=== PATIENT | female | born 1945 | race Caucasian/White ===

== ENCOUNTER 2016-10-21 18:21 | Emergency (ER) | payer OTHER ==
[~2016-10-21] VITALS: Ht 157.5 cm; Wt 63.5 kg
[~2016-10-21 18:21] MED LIST: ALEVE220 M1 PO; AZITHROMYCIN500 M3 PO; BENADRYL25 MG PO; CEFUROXIME250 M1 PO; GUAIFENESI100 MG/5 M PO; GUAIFENESIN ER600 MG PO; MULTI-DAY VITA1 EACH PO; VITAMIN C500 M6 PO
[2016-10-21] MEDS ORDERED: ALBUTEROL2.5 MG/3 M INH/SOL (19:47)
--- NOTE | 2016-10-21 20:05 | ED GI/GU/ABDOMINAL COMPLAINT ---
History of Present Illness General Chief Complaint: General Adult Stated Complaint: PT IS HAVING A REACTION TO RX GIVEN BY Source: patient, family Exam Limitations: no limitations Vital Signs & Intake/Output Vital Signs & Intake/Output Vital Signs Date Time Temp Pulse Resp B/P Pulse O2 O2 Flow FiO2 Ox Delivery Rate 10/21 2057 97.4 74 16 142/74 97 Room Air 10/21 1942 Room Air 10/22 1911 97.8 10/21 1831 99.2 88 20 167/93 94 Room Air ED Intake and Output 10/22 0000 10/21 1200 Intake Total 0 Output Total Balance 0 Intake, Oral 0 Patient 140 lb Weight Allergies Coded Allergies: Penicillins (RASH 10/21/16) Sulfa (Sulfonamide Antibiotics) (RASH 10/21/16) azithromycin (SEVERE GI PAIN, DIARRHEA 10/21/16) Reconcile Medications Albuterol Sulfate 2.5 MG/3 ML (0.083 %) VIAL.NEB 1 Vial INH/NURYS QAM RIGHT MIDDLE LOBE SYNDROME (Reported) Ascorbate Calcium (Vitamin C) (Unknown Strength) TABLET (Unknown Dose) PO DAILY SUPPLEMENT (Reported) Moxifloxacin HCl (Avelox) 400 MG TABLET 1 TAB PO DAILY pneumonia Multivitamin (Multi-Day Vitamins) 1 EACH TABLET 1 TAB PO DAILY SUPPLEMENT ( Reported) Triage Note: TRIAGE: PT TO ER C/C ABD PAIN AND DIARRHEA X 3 EPISODES, ONSET NOON. STATES IT STARTED RIGHT AFTER TAKING NEW ANTIBIOTIC AZITHROMYCIN FOR INFLAMMATION IN HER LUNGS. Triage Nurses Notes Reviewed? yes ? n Is pt currently ? No HPI: Miss Sullivan is a 71-year-old female with past medical history of recurrent pneumonias, and middle lobe syndrome presenting to the emergency department for GI upset. 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 She had a chest x-ray done which showed some early signs of inflammation. Given her history of previous pneumonias, the decision was made to put the patient azithromycin. Patient states she ate a normal lunch around noon and followed by yogurt about an hour later. Then she took the azithromycin 500 mg as today was the first day. Soon after, the patient developed abdominal pain as well as nausea. She had 3 episodes of diarrhea and by the last episode was quite watery nature. No chest pain, shortness of breath, throat swelling, trouble swallowing,cough, fever or chills. No blood in the stools. Denies any rash. Past History Travel History Traveled to [place] past 21 day No Medical History Any Pertinent Medical History? 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 No Review of Systems Review of Systems Constitutional: Reports: see HPI. EENTM: Reports: no symptoms. Respiratory: Reports: no symptoms. Cardiovascular: Reports: no symptoms. GI: Reports: abdominal pain, bloating, diarrhea, distention, nausea. Denies: bloody stool, vomiting. Genitourinary: Reports: no symptoms. Musculoskeletal: Reports: no symptoms. Skin: Reports: no symptoms. Neurological/Psychological: Reports: no symptoms. Hematologic/Endocrine: Reports: no symptoms. Immunologic/Allergic: Reports: no symptoms. All Other Systems: Reviewed and Negative Physical Exam Physical Exam Gastrointestinal: soft, non-tender, no organomegaly, hyperactive bowel sounds, no guarding or rebound Comments: Well-developed well-nourished patient in no apparent distress. HEENT: Atraumatic, extraocular motion intact Neck: Supple, FROM, no lymphadenopathy Back: FROM, Nontender Cardiovascular: Regular rate and rhythms no murmurs rubs or gallops, Respiratory: Chest nontender.There were no bony deformities, no asymmetry. No respiratory distress. Patient speaking in full complete sentences. Breath sounds clear to auscultation bilaterally: NO W/R/R Abdomen: Soft, nontender, nondistended Extremities: full range of motion Neuro: Alert and oriented x3 Skin: Warm & dry;No appreciable rash on exposed skin Psych: Mood affect normal, normal memory normal judgment. Core Measures ACS in differential dx? No Severe Sepsis Present: No Septic Shock Present: No Progress Differential Diagnosis: biliary colic, bowel obstruction, diverticulitis, inflamm bowel dis, PUD/GERD, drug reaction Plan of Care: Patient is otherwise well-appearing. Appears slightly uncomfortable. Has hyperactive bowel sounds in the setting of starting azithromycin for the first day. Spoke to Dr. Fonseca today who states the patient has tolerated azithromycin past without issues. Given the relatively close timing of the onset of symptoms soon after taking the azithromycin, it is unlikely that any other GI pathology is ongoing. Patient doesn't have any right upper quadrant pain to suggest biliary colic she is afebrile so it is unlikely that she has diverticulitis. There is been no episodes of vomiting to suggest a bowel obstruction. She was given ODT Zofran and will reassess. We will have the patient stop using the azithromycin and prescribe her Moxifloxacin today. She will follow up with Dr. Fonseca as an outpatient. Dr. Fonseca stopped by to say hello to patient here in ED and agreed with plan to switch Abx. Initial ED EKG: none Departure Departure Time of Disposition: 2035 Disposition: HOME OR SELF CARE Condition: Stable Clinical Impression Primary Impression: Medication side effect Secondary Impressions: Abdominal cramping, Diarrhea Referrals: SONYA TURCIOS,MARLINE Cedeno (PCP/Family) Additional Instructions: Please take Bactrim twice a day for the next 5 days. You can follow-up with Dr. Fonseca as needed for your shortness of breath. If you develop worsening shortness of breath, fever or productive cough please return to the emergency department for further evaluation. Bactrim with food. It also might be helpful for you to use probiotics to prevent any worsening of the diarrhea. Departure Forms: Customer Survey General Discharge Information Prescriptions: Current Visit Scripts Moxifloxacin HCl (Avelox) 1 TAB PO DAILY #5 TAB
[2016-10-21] MEDS ORDERED: AVELOX400 M1 PO (20:45)
[2016-10-21 20:58] VITALS: BP 142/74
== END 2016-10-21 21:08 ==
LOC: ERH 18:21
DX: T36.95XA Adverse effect of unspecified systemic antibiotic, initial encounter (principal); R19.7 Diarrhea, unspecified; R10.9 Unspecified abdominal pain
CPT/HCPCS: J3101

== ENCOUNTER 2017-09-27 23:06 | Inpatient (IN) | payer OTHER ==
[~2017-09-27] VITALS: Ht 157.5 cm; Wt 65.1 kg
[~2017-09-27 23:06] MED LIST changes: +ALBUTEROL2.5 MG/3 M INH/SOL; +AVELOX400 M1 PO; +DAILY VALUE1 EACH PO; -MULTI-DAY VITA1 EACH PO
--- NOTE | 2017-09-27 23:51 | CT SCAN REPORT ---
EXAMINATION: CT CHEST WITHOUT CONTRAST CLINICAL INFORMATION: Cough, fever COMPARISON: 06/26/2016 TECHNIQUE: Multidetector volumetric CT imaging of the chest was done. Axial MIP volume rendering provided. Sagittal and coronal reformatted images were obtained. Noncontrast study limits this exam. Centrally there is some mildly increasing adenopathy. The hilar regions are comparable to previous. Imaging the lung [place]. Right lung; Increasing reticular nodular change in the right upper lung anterior. This be consistent with acute infiltrate superimposed on chronic change. There is no significant effusion. Left lung Dense left upper lung opacity anterior consistent with a cyst small area of dense infiltrate. Stable appearing nodularity in the lingula. No effusion. Is a noncontrast study. Once again low-density lesions are seen in the liver. No definitive change from previous but still etiology is not determined here. IMPRESSION: Dense infiltrate in the left upper lung anterior as described and some increasing reticular nodular change in the right upper lung anterior. These are most consistent with areas of infiltrate. I would recommend a follow-up study here after treatment 6 weeks to 3 months to assess for resolution as underlying malignancy cannot be excluded such as bronchoalveolar tumor There is some increasing central adenopathy which may be reactive but again short-term follow-up is recommended.
--- NOTE | 2017-09-28 00:12 | ED GENERAL ADULT ---
History of Present Illness General Chief Complaint: General Adult Stated Complaint: COUGH AND CONGESTION Source: patient, old records Exam Limitations: no limitations Vital Signs & Intake/Output Vital Signs & Intake/Output Vital Signs Date Time Temp Pulse Resp B/P B/P Pulse O2 O2 Flow FiO2 Mean Ox Delivery Rate 09/29 0556 98.6 77 20 126/64 95 Room Air 09/29 0000 93 Room Air 09/28 2240 Room Air Room Air 09/28 2142 99.5 85 18 110/60 93 09/28 1955 99.8 09/28 1800 100.0 09/28 1646 100.7 09/28 1642 100.7 09/28 1423 99.5 96 20 130/80 90 Room Air ED Intake and Output 09/29 0000 09/28 1200 Intake Total 720 1040 Output Total 550 Balance 720 490 Intake, IV 140 800 Intake, Oral 580 240 Output, Urine 550 Patient 138 lb Weight Allergies Coded Allergies: Penicillins (RASH 10/21/16) Sulfa (Sulfonamide Antibiotics) (RASH 10/21/16) azithromycin (SEVERE GI PAIN, DIARRHEA 10/21/16) Triage Note: 72F WITH RECURRENT PNA FOLLOWED BY DR NJ WITH LEFT RIB AREA PAIN THAT RADIATES INTO HER BREAST. STARTED NOT FEELING RIGHT AROUND 8PM. O2 SAT 97%. STATES HER PREVIOUS PNA'S PRESENTED WITH SAME SYMPTOMS AND ONLY SHOW UP ON DRY CT CHEST. DENIES ABILITY TO EXPECTORATE. TEMP 101.0 AND MEDICATED WITH TYLENOL. 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 ALBUTEROL WITH ONLY SHORT TERM RELIEF. +HEADACHE, CHILLS, DIFF BREATHING BUT NO OVERT DISTRESS. DYSPNIC ON EXERTION. FLU SWAB SENT FROM TRIAGE Triage Nurses Notes Reviewed? yes Onset: Abrupt Duration: day(s): (1), constant, getting worse Timing: recent history Injury Environment: home Severity: moderate, severe No Modifying Factors: none HPI: 72-year-old female comes into emergency room for fever chills body aches and nonproductive cough. Symptoms began earlier today and got progressively worse. History of pneumonia. She comes in for further evaluation. Sees Dr. Nj. some associated left-sided rib pain with the cough (Shankar COVARRUBIAS,Kristopher) Reconcile Medications Albuterol Sulfate 2.5 MG/3 ML (0.083 %) VIAL.NEB 1 Vial INH/NURYS QAM RIGHT MIDDLE LOBE SYNDROME (Reported) Ascorbate Calcium (Vitamin C) (Unknown Strength) TABLET (Unknown Dose) PO DAILY SUPPLEMENT (Reported) Moxifloxacin HCl (Avelox) 400 MG TABLET 1 TAB PO DAILY pneumonia Multivitamin (Daily Value) 1 EACH TABLET 1 TAB PO DAILY VITAMIN SUPPORT ( Reported) (Stephen TURCIOS,Mary) Past History Travel History Traveled to [place] past 21 day No Medical History Any Pertinent Medical History? 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 No (Kristopher Hill) Review of Systems Review of Systems Constitutional: Reports: see HPI. EENTM: Reports: no symptoms. Respiratory: Reports: see HPI. Cardiovascular: Reports: see HPI. GI: Reports: no symptoms. Genitourinary: Reports: no symptoms. Musculoskeletal: Reports: no symptoms. Skin: Reports: no symptoms. Neurological/Psychological: Reports: no symptoms. Hematologic/Endocrine: Reports: no symptoms. Immunologic/Allergic: Reports: no symptoms. All Other Systems: Reviewed and Negative (Kristopher Hill) Physical Exam Physical Exam General Appearance: well developed/nourished, alert, awake, mild distress Head: atraumatic, normal appearance Eyes: Bilateral: normal appearance. Ears, Nose, Throat: normal ENT inspection, hearing grossly normal Neck: normal inspection, full range of motion Respiratory: normal breath sounds, no respiratory distress Cardiovascular: regular rate/rhythm, tachycardia Gastrointestinal: soft Back: normal inspection Extremities: normal inspection, no edema Neurologic/Psych: awake, alert, oriented x 3, normal gait Skin: intact, normal color Core Measures ACS in differential dx? No CVA/TIA Diagnosis: No Sepsis Present: No Sepsis Focused Exam Completed? No (Kristopher Hill) Progress Differential Diagnoses I considered the following diagnoses in my evaluation of the patient: Pneumonia , sepsis, UTI, PE, AL, Plan of Care: Orders Procedure Date/time Status ANTI-IMMUNE GLOBULIN M 09/29 06 Active ANTI - IMMUNE GLOBULIN G 09/29 06 Active ANTI-IMMUNE GLOBULIN A 09/29 06 Active HIGH SENSITIVITY CRP 09/29 06 Active WESTERGREN SED RATE 09/29 0600 Active CBC WITHOUT DIFFERENTIAL 09/29 06 Active BASIC ELECTROLYTES PLUS BUN&CR 09/29 06 Active RT: Evaluation 09/28 2239 Active AFB 1 WITH SMEAR 09/28 1057 Active ANTINUCLEAR ANTIBODY 09/28 06 Active INCENTIVE SPIROMETRY TRX CHG 09/28 UNK Complete TRC EVALUATION (GEN) 09/28 UNK Complete THERAPIST ORDERS 09/28 UNK Complete Lab Add-on Test 09/28 UNK Active ASPERGILLUS AB Ref$ 09/28 UNK Active Current Medications Sig/Dwain Start time Last Medication Dose Stop Time Status Admin Albuterol Sulfate 3 ML Q4P PRN 09/28 2300 AC (Proventil) Ceftriaxone Sodium 1,000 MG DAILY 09/28 1000 AC 09/28 (Rocephin) 0820 Doxycycline Hyclate 100 MG DAILY 09/28 1000 AC 09/28 (Vibramycin) 1014 Sodium Chloride 100 ML (Normal Saline 0.9%) Enoxaparin Sodium 40 MG DAILY 09/28 1000 AC 09/28 (Lovenox) 0821 Guaifenesin 600 MG Q12 09/28 1000 AC 09/28 (Mucinex) 2152 Guaifenesin/ 10 ML Q6P PRN 09/28 0500 AC Dextromethorphan (Robitussin Dm) Acetaminophen 650 MG Q6P PRN 09/28 0300 AC 09/28 (Tylenol) 1646 Ibuprofen 600 MG Q6P PRN 09/28 0300 AC 09/29 (Motrin) 0530 Ondansetron HCl 4 MG Q6P PRN 09/28 0300 AC 09/28 (Zofran) 1646 Laboratory Tests 09/29/17 0715: Anion Gap 7, Estimated GFR > 60, BUN/Creatinine Ratio 25.0, C-React Prot High Sens Pending, CBC w Diff NO MAN DIFF REQ, RBC 3.79 L, MCV 91.4, MCH 30.4, MCHC 33.3, RDW 13.8, MPV 8.6, Gran % 76.5 H, Lymphocytes % 9.1 L, Monocytes % 11.1 H, Eosinophils % 3.0, Basophils % 0.3, Absolute Granulocytes 6.6 H, Absolute Lymphocytes 0.8 L, Absolute Monocytes 1.0 H, Absolute Eosinophils 0.3, Absolute Basophils 0, ESR Westergren Pending 09/29/17 0600: IgA Pending, IgM Pending, Serum IgG Pending 09/28/17 1400: TB Test (QFT) Mitogen Pending, TB Test Mitogen - Nil Pending, TB Test Antigen - Nil Pending, TB Test (QFT) Interp Pending Microbiology 09/28 1057 LOWER RESP: AFB Culture with PCR Identification - COLB 09/28 105 LOWER RESP: AFB Smear Concentration - COLB Diagnostic Imaging: Viewed by Me: CT Scan. Discussed w/RAD: CT Scan. 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 Axial MIP volume rendering provided. Sagittal and coronal reformatted images were obtained. Noncontrast study limits this exam. Centrally there is some mildly increasing adenopathy. The hilar regions are comparable to previous. Imaging the lung [place]. Right lung; Increasing reticular nodular change in the right upper lung anterior. This be consistent with acute infiltrate superimposed on chronic change. There is no significant effusion. Left lung Dense left upper lung opacity anterior consistent with a cyst small area of dense infiltrate. Stable appearing nodularity in the lingula. No effusion. Is a noncontrast study. Once again low- density lesions are seen in the liver. No definitive change from previous but still etiology is not determined here. IMPRESSION: Dense infiltrate in the left upper lung anterior as described and some increasing reticular nodular change in the right upper lung anterior. These are most consistent with areas of infiltrate. I would recommend a follow-up study here after treatment 6 weeks to 3 months to assess for resolution as underlying malignancy cannot be excluded such as bronchoalveolar tumor There is some increasing central adenopathy which may be reactive but again short-term follow-up is recommended. DICTATED BY: Christopher Mckinney MD DATE/TIME DICTATED:09/27/172341 RHIA:OLE DATE/TIME TRANSCRIBED:09/27/172341 CONFIDENTIAL, DO NOT COPY WITHOUT APPROPRIATE AUTHORIZATION. <Electronically signed in Other Vendor System> SIGNED BY: Christopher Mckinney MD 09/27/17 2351 Initial ED EKG: normal sinus rhythm, rate (91) (Kristopher Hill) Departure Departure Disposition: STILL A PATIENT Condition: Stable Clinical Impression Primary Impression: Left upper lobe pneumonia Referrals: Viktor TURCIOS,Myke Cedeno (PCP/Family) Departure Forms: Customer Survey General Discharge Information Admission Note Spoke With: Ronaldo uJlian MDoliverio Documentation of Exam: Documentation of any treatments & extenuating circumstances including Concerns Regarding Discharge (functional status, medication knowledge or non-compliance, living conditions, etc.) that warrant an admission rather than observation: Patient will require IV antibiotics. IV fluids. hgih risk. medically not safe for discharge. (Kristopher Hill) PA/ELECTRICAL LOGGING OPERATOR Co-Sign Statement Statement: ED Attending supervision documentation- [X] I saw and evaluated the patient. I have also reviewed all the pertinent lab results and diagnostic results. I agree with the findings and the plan of care as documented in the PA's/ELECTRICAL LOGGING OPERATOR's documentation. [X] I have reviewed the ED Record and agree with the PA's/ELECTRICAL LOGGING OPERATOR's documentation. [] Additions or exceptions (if any) to the PAs/ELECTRICAL LOGGING OPERATOR's note and plan are summarized below: [] (Mary Mitchell MD) Critical Care Note Critical Care Note Critical Care Time: non-applicable (Kristopher Hill) 09/28 1057 LOWER RESP: AFB Culture with PCR Identification - COLB 09/28 1057 LOWER RESP: AFB Smear Concentration - COLB 09/28 0445 URINE ROUT: Legionella Antigen - COMP 09/28 044 URINE ROUT: Streptococcus pneumoniae Antigen (M - COMP 09/28 0210 LOWER RESP: Respiratory Culture - COLB 09/28 0210 LOWER RESP: Gram Stain - COLB 09/28 0047 BLOOD: Blood Culture - RECD 09/27 235 BLOOD: Blood Culture - RES 09/27 2315 NASOPHARYN: Influenza Virus A & B Rapid Smear - COMP (Mary Mitchell MD) Departure Departure Disposition: STILL A PATIENT Condition: Stable Clinical Impression Primary Impression: Left upper lobe pneumonia Referrals: Viktor TURCIOS,Myke Cedeno (PCP/Family) Departure Forms: Customer Survey General Discharge Information Admission Note Spoke With: Eliel TURCIOS,Ronaldooliverio Documentation of Exam: Documentation of any treatments & extenuating circumstances including Concerns Regarding Discharge (functional status, medication knowledge or non-compliance, living conditions, etc.) that warrant an admission rather than observation: Patient will require IV antibiotics. IV fluids. hgih risk. medically not safe for discharge. (Kristopher Hill) PA/ELECTRICAL LOGGING OPERATOR Co-Sign Statement Statement: ED Attending supervision documentation- [X] I saw and evaluated the patient. I have also reviewed all the pertinent lab results and diagnostic results. I agree with the findings and the plan of care as documented in the PA's/ELECTRICAL LOGGING OPERATOR's documentation. [X] I have reviewed the ED Record and agree with the PA's/ELECTRICAL LOGGING OPERATOR's documentation. [] Additions or exceptions (if any) to the PAs/ELECTRICAL LOGGING OPERATOR's note and plan are summarized below: [] (Mary Mitchell MD) Critical Care Note Critical Care Note Critical Care Time: non-applicable (Kristopher Hill)
[2017-09-28 00:15] LABS: ABSOLUTE BASOPHIL COUNT 0 /CUMM (0.0-0.2); ABSOLUTE EOSINOPHIL COUNT 0.1 /CUMM (0.0-0.7); ABSOLUTE GRANULOCYTE CT 9.6 /CUMM (1.4-6.5); ABSOLUTE LYMPH COUNT 0.8 /CUMM (1.2-3.4); ABSOLUTE MONOCYTE COUNT 0.9 /CUMM (0.10-0.60); BASOPHIL % 0.2 % (0.0-2.0); EOSINOPHIL % 0.8 % (0-5); HEMATOCRIT 36.1 % (37-47); MEAN CORPUSCULAR HGB 30.3 PG (27.0-31.0); MEAN CORPUSCULAR HGB CONC 33.6 G/DL (33.0-37.0); MEAN CORPUSCULAR VOLUME 89.9 FL (81.0-99.0); MEAN PLATELET VOLUME 8.6 FL (7.4-10.4); PLATELET COUNT 301 /CUMM (130-400); RBC DISTRIBUTION WIDTH 13.6 % (11.5-14.5); RED BLOOD CELL CT 4.01 /CUMM (4.20-5.40); WHITE BLOOD CELL COUNT 11.3 /CUMM (4.8-10.8)
[2017-09-28 00:43] LABS: GRANULOCYTE % 84.3 % (42.2-75.2)
--- NOTE | 2017-09-28 02:18 | History & Physical ---
SilasMadison 09/28/17 0215: General Information and HPI MD Statement: I have seen and personally examined SILVAI WORKMAN and documented this H&P. The patient is a 72 year old F who presented with a patient stated chief complaint of chills, fever, left lateral chest pain with nonproductive cough for 1 day and feeling tired and headache with nausea for 1 week []. 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 Patient reported that she is feeling tired, headache and having nausea for last 1 week but the last one day patient developed chills with fever. Patient reported that she checked her temperature at home 100.4, she started to have nonproductive cough along with left lower lateral chest pain from her left shoulder blade, 7/10, sharp and increases with taking deep breaths. Patient reported the with deep breath and cough her pain increases but with just she feels better. Patient also reported having exertional dyspnea that's going on for a long time. Patient denied any central chest pain, palpitation, vomiting, sputum, sick contacts, stuffiness of nose, runny nose, buzzing sound in ears, abdominal pain, diarrhea, constipation, loss of consciousness and dysuria. Patient reported that she used to say Catherine Fonseca MD and she diagnosed her with right middle lobe syndrome and then she started to see Dr. Contreras has her is also seeing Dr. Contreras. According to patient that the Diane diagnosed her with Lady Walnut syndrome. Patient is using albuterol intermittently whenever she has difficulty in breathing. Patient last time admitted with sepsis due to pneumonia in 2016. Patient reported that she had multiple admissions with pneumonia, every year she used to be admitted with pneumonia. Patient had history of ocular melanoma for which she is following her coding technician and oncologist and she often every 6 months. ED course: Vitals: Temperature 101.0, pulse 104, respiratory rate 22, blood pressure 165/87 , oxygen saturation 97% on room air Labs: WBC count 11.3, hemoglobin 12.1, hematocrit 36.1, platelet count 301, sodium 140, potassium 4.0, BUN 19, creatinine 0.5, anion gap 11, BUN/creatinine ratio 38.0, glucose 98, lactic acid 0.8, AST 36, ALT 33, alkaline phosphatase 84 , troponin less than 0.01, total protein 6.5, albumin 4.0 Allergies/Medications Allergies: Coded Allergies: Penicillins (RASH 10/21/16) Sulfa (Sulfonamide Antibiotics) (RASH 10/21/16) azithromycin (SEVERE GI PAIN, DIARRHEA 10/21/16) Home Med list Albuterol Sulfate 2.5 MG/3 ML (0.083 %) VIAL.NEB 1 Vial INH/NURYS QAM RIGHT MIDDLE LOBE SYNDROME (Reported) Ascorbate Calcium (Vitamin C) (Unknown Strength) TABLET (Unknown Dose) PO DAILY SUPPLEMENT (Reported) Moxifloxacin HCl (Avelox) 400 MG TABLET 1 TAB PO DAILY pneumonia Multivitamin (Multi-Day Vitamins) 1 EACH TABLET 1 TAB PO DAILY SUPPLEMENT ( Reported) Past History Travel History Traveled to [place] past 21 day No Medical History Neurological: NONE EENT: NONE Cardiovascular: NONE Respiratory: PNEUMONIA X 4 ?R LUNG 29% BLOCKED R MIDDLE LOBE SYNDROME Gastrointestinal: NONE Hepatic: NONE Renal: NONE Musculoskeletal: NONE Psychiatric: NONE Endocrine: NONE Blood Disorders: NONE Cancer(s): 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 Ambulation: independent IADLs Independent: shopping, housework, finances, food prep, telephone, transportation , medication admin. Review of Systems Review of Systems Constitutional: Reports: weakness. EENTM: Reports: no symptoms. Cardiovascular: Reports: see HPI. Respiratory: Reports: cough, short of breath. GI: Reports: nausea. Genitourinary: Reports: no symptoms. Musculoskeletal: Reports: no symptoms. Skin: Reports: no symptoms. Neurological/Psychological: Reports: headache. Hematologic/Endocrine: Reports: no symptoms. Exam & Diagnostic Data Last 24 Hrs of Vital Signs/I&O Vital Signs Date Time Temp Pulse Resp B/P B/P Pulse O2 O2 Flow FiO2 Mean Ox Delivery Rate 09/28 0219 99.0 78 18 129/76 96 Room Air 09/27 2352 Room Air 09/27 2317 101.0 104 22 165/87 97 Room Air Intake & Output 09/28 0800 09/28 0000 09/27 1600 Intake Total Output Total Balance Patient 143 lb Weight Physical Exam General Appearance Alert, Oriented X3, Cooperative, No Acute Distress Skin No Rashes Skin Temp/Moisture Exam: Warm/Dry Sepsis Skin Exam (color): Normal for Ethnicity HEENT Atraumatic, PERRLA, EOMI Neck Supple Cardiovascular Normal S1, Normal S2 Lungs Clear to Auscultation, Decreased breath sounds B/L Abdomen Soft, No Tenderness Neurological Normal Speech, Strength at 5/5 X4 Ext, Normal Tone, Sensation Intact Extremities No Edema Assessment/Plan Assessment: 72 YO F with PMH of multiple episodes of pneumonia, lady windermere syndrome, 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 We will admit the patient on general medicine floor and treat for sepsis secondary to community-acquired pneumonia. Sepsis due to Community-acquired pneumonia: -Patient meeting the criteria of sepsis. Patient maintain 3 out of 4 criteria is of SIRS, temperature 101.0, pulse 104, respiratory 22 with evidence of pneumonia on imaging study. -Supplemental oxygen if she needs it to maintain saturation above 92%. -Blood cultures -We will do sputum cultures if she brings any. -IV ceftriaxone and doxycycline as patient is allergic to azithromycin -TRC nebulization as needed -Chest physiotherapy -Gentle IV hydration -Urine for legionella and strep antigen -Mucinex -Lactic acid was 0.8 on admission DVT prophylaxis; Mechanical and subcutaneous heparin CODE STATUS: Full code As Ranked By This Provider Problem List: 1. Left upper lobe pneumonia 2. Sepsis Core Measures/Misc (03/29) Acute Coronary Syndrome ACS Diagnosis: No Congestive Heart Failure Congestive Heart Failure Diagnosis No Cerebrovascular Accident CVA/TIA Diagnosis: No VTE (View Protocol) VTE Risk Factors Age>40 No Mechanical VTE Prophylaxis d/t N/A MechProphylax Ordered No VTE Pharm Prophylaxis d/t NA PharmProphylax ordered Sepsis (View protocol) Sepsis Present: No Felicia Callejas 09/28/17 0324: Resident Review Statement Resident Statement: examined this patient, discussed with application support intern, agreed with application support intern Other Findings: Patient is 76-year-old female with past medical history significant for ocular melanoma status post proton beam radiation, chronic arthritis, recurrent pneumonias almost once every year for last 6-7 years, history of ?MAC/ lady Wind[place] syndrome following Dr. Contreras regularly last visit almost 3 weeks ago. Patient was feeling fatigued for last couple of days but for past 2 days her symptoms got worse. She has cough which is mostly dry and she couldn't bring up any phlegm. Today she started having chills and fever along with stomachache and nausea. She denied any vomiting, diarrhea, constipation, headache, any urinary complaints. She endorses for having dizziness and worsening shortness of breath. Vital signs on admission were temperature 101.0, pulse 104, respiratory rate 22, blood pressure 165/87 and she was saturating 97% on room air. Sodium 140, potassium 4.0, BUN 19, creatinine 0.5, lactic acid 0.8, negative troponin, EKG showed normal sinus rhythm with no acute ST-T wave changes CT chest showed dense infiltrate in left anterior upper lobe, increasing reticular-nodular changes and right upper lobe. On examination Alert and oriented 3 Head atraumatic HEENT PERRLA Neck supple no JVD Chest showed bilateral mild rhonchi Heart S1-S2 normal no added sounds Abdomen soft no tenderness, no organomegaly Extremities showed no edema No neurological deficit noted on examination Assessment and plan 72-year-old female with history of ocular melanoma, questionable middle lobe syndrome/MAC/lady Windem[place] syndrome and recurrent pneumonia came in with chief complaint of chills, fever and cough with imaging evidence of left upper lobe infiltrate suggestive of pneumonia. We will admit patient to general medical floor and will take care for the following problems Problem list 1. Cough/shortness of breath most likely due to community-acquired pneumonia 2. History of arthritis 3. History of questionable MAC/middle lobe syndrome/lady Windem[place] syndrome 4. History of recurrent pneumonias Plan 1. We will admit her on general medical floor. She had mild leukocytosis and we will monitor her white cell count 2. We will cell and culture and lower respiratory culture. He will check urine for Legionella and strep pneumo antigen 3. We will cover her with ceftriaxone and doxycycline for community-acquired pneumonia of note patient is allergic to penicillin, sulfa and azithromycin. 4. Analgesic and antipyretic as needed 5. TRC and neb if needed 6. We will request pulmonary consultation with Dr. Contreras in a.m. 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 Tmax 100.4 at home. She reports feeling weak, fatigued and ' queasy' to her stomach in the past 1 week. She denies weight loss or loss of appetite. No sick contacts or recent travel. She has had her pneumonia and flu vaccines. Patient follows with Dr. Contreras (previously seen Dr. Fonseca) and had a CT chest in Jun 2017. Vitals: Tmax 101, HR 104, BP 110/70, sats 95% RA. Exam: AAO, dry mucous membranes, Chest scattered rhonchi anteriorly, otherwise normal exam. Labs: WBC 11.3, BUN 19, trop neg. CT chest: dense infiltrate in left upper lung anterior with some increasing reticular nodular change in right upper lung most consistent with areas of infiltrate, central adenopathy which may be reactive. EKG: sinus rhythm, no acute changes. Assessment and plan: 1. Sepsis 2. Community acquired pneumonia multilobar pneumonia 3. History of RML/ Lady Walnut syndrome 4. Recurrent pneumonia - Admit to general medicine - TRC nebs - Blood and sputum cultures, urine legionella and strep Ag - IV ceftriaxone and doxycycline (patient reports allergic reaction to azithro- although she seems to have received in the past) - Gentle IV hydration, encourage PO intake - Add robitussin - Pulm consult (Dr. Contreras) DVT ppx Lovenox. Full code.
[2017-09-28 04:00] VITALS: BP 110/70
--- NOTE | 2017-09-28 04:04 | Admission Certification ---
Admission Certification Certification Statement - As attending physician, I certify that at the time of - admission, based on clinical presentation, severity of - symptoms, need for further diagnostic testing and - therapeutic interventions, and risk of adverse outcomes - without in-hospital treatment, in my clinical assessment, - this patient requires an acute hospital stay for a minimum - of two nights or longer. I have also considered psychsocial - factors such as support system, advanced age, financial - issues, cognitive issues, and failed out-patient treatments, - past re-admission history, safety of patient, and lack of - compliance as applicable. Specific rationale supporting this admission is: Sepsis, community acquired pneumonia.
[2017-09-28 06:48] VITALS: BP 132/66
--- NOTE | 2017-09-28 07:48 | PN- Housestaff ---
Minnie TURCIOS,[place] 09/28/17 0747: Subjective Follow-up For: Cryptogenic organing pneumonia Lady windmeyer syndrome Subjective: seen and examined Still reports significant pleuritic pain, worse with walking. able to walk to the rest room. Review of Systems Constitutional: Reports: see HPI. Objective Last 24 Hrs of Vital Signs/I&O Vital Signs Date Time Temp Pulse Resp B/P B/P Pulse O2 O2 Flow FiO2 Mean Ox Delivery Rate 09/28 0648 98.5 77 18 132/66 94 Room Air 09/28 0400 95 09/28 0400 98.7 77 20 110/70 95 Room Air 09/28 0219 99.0 78 18 129/76 96 Room Air 09/27 2352 Room Air 09/27 2317 101.0 104 22 165/87 97 Room Air Intake & Output 09/28 0800 09/28 0000 09/27 1600 Intake Total 1040 Output Total 550 Balance 490 Intake, IV 800 Intake, Oral 240 Output, Urine 550 Patient 62.652 kg 64.864 kg Weight Physical Exam General Appearance: Alert, Oriented X3, Cooperative Skin: No Rashes Skin Temp/Moisture Exam: Warm/Dry HEENT: Atraumatic, PERRLA, EOMI Neck: Supple Cardiovascular: Regular Rate, Normal S1, Normal S2 Lungs: Clear to Auscultation, Normal Air Movement, decreased on the right medial side Abdomen: Normal Bowel Sounds, Soft, No Tenderness Neurological: Normal Gait, Normal Speech, Strength at 5/5 X4 Ext, Normal Tone, Sensation Intact, Cranial Nerves 3-12 NL Extremities: No Clubbing, No Cyanosis, No Edema Current Medications: Current Medications Sig/Dwain Start time Last Medication Dose Route Stop Time Status Admin Acetaminophen 650 MG Q6P PRN 09/28 0300 AC 09/28 PO 1646 Ceftriaxone Sodium 1,000 MG DAILY 09/28 1000 AC 09/28 IV 0820 Ceftriaxone Sodium 0 .STK-MED ONE 09/28 0116 DC .ROUTE Ceftriaxone Sodium 1,000 MG ONCE ONE 09/28 010 DC 09/28 IV 09/28 0101 0127 Doxycycline Hyclate 100 MG DAILY 09/28 1000 AC 09/28 Sodium Chloride 100 ML IV 1014 Doxycycline Hyclate 100 MG ONCE ONE 09/28 010 DC 09/28 Dextrose/Water 100 ML IV 09/28 0205 0127 Enoxaparin Sodium 40 MG DAILY 09/28 1000 AC 09/28 SC 0821 Guaifenesin 600 MG Q12 09/28 1000 AC 09/28 PO 1013 Guaifenesin/ 10 ML Q6P PRN 09/28 0500 AC Dextromethorphan PO Ibuprofen 600 MG Q6P PRN 09/28 0300 AC 09/28 PO 0605 Ondansetron HCl 4 MG Q6P PRN 09/28 0300 AC 09/28 IV 1646 Ondansetron HCl 4 MG ONCE ONE 09/28 0100 DC 09/28 IV 09/28 0101 0100 Ondansetron HCl 0 .STK-MED ONE 09/28 0058 DC .ROUTE Sodium Chloride 1,000 ML ONCE ONE 09/28 0230 DC 09/28 IV 09/28 1229 0252 Tramadol HCl 50 MG ONCE ONE 09/28 0100 DC 09/28 PO 09/28 0101 0059 Tramadol HCl 0 .STK-MED ONE 09/28 0058 DC PO Last 24 Hrs of Lab/Arthur Results Last 24 Hrs of Labs/Mics: Laboratory Tests 09/28/17 1400: TB Test (QFT) Mitogen Pending, TB Test Mitogen - Nil Pending, TB Test Antigen - Nil Pending, TB Test (QFT) Interp Pending 09/28/17 0645: Anion Gap 7, Estimated GFR > 60, BUN/Creatinine Ratio 26.0 H, CBC w Diff NO MAN DIFF REQ, RBC 3.70 L, MCV 91.8, MCH 30.6, MCHC 33.4, RDW 14.5, MPV 8.6, Gran % 78.6 H, Lymphocytes % 9.4 L, Monocytes % 10.9 H, Eosinophils % 0.8, Basophils % 0.3, Absolute Granulocytes 7.2 H, Absolute Lymphocytes 0.9 L, Absolute Monocytes 1.0 H, Absolute Eosinophils 0.1, Absolute Basophils 0 09/28/17 0600: JOSÉ MANUEL Titer Pending, Anti-Nuclear Antibody Pending 09/28/17 0445: Urine Color STRAW, Urine Clarity CLEAR, Urine pH 6.5, Ur Specific [place] <= 1.005, Urine Protein NEG, Urine Ketones NEG, Urine Nitrite NEG, Urine Bilirubin NEG, Urine Urobilinogen 0.2, Ur Leukocyte Esterase NEG, Ur Microscopic EXAM NOT REQUIRED, Urine Hemoglobin NEG, Urine Glucose NEG 09/28/17 0217: Lactic Acid Cancelled 09/27/17 2344: Anion Gap 11, Estimated GFR > 60, BUN/Creatinine Ratio 38.0 H, Glucose 98, Lactic Acid 0.8, Calcium 9.4, Total Bilirubin 0.7, AST 36, ALT 33, Alkaline Phosphatase 84, Troponin I < 0.01, Total Protein 6.5, Albumin 4.0, Globulin 2.5, Albumin/Globulin Ratio 1.6, CBC w Diff NO MAN DIFF REQ, RBC 4.01 L, MCV 89.9, MCH 30.3, MCHC 33.6, RDW 13.6, MPV 8.6, Gran % 84.3 H, Lymphocytes % 7.1 L, Monocytes % 7.6, Eosinophils % 0.8, Basophils % 0.2, Absolute Granulocytes 9.6 H, Absolute Lymphocytes 0.8 L, Absolute Monocytes 0.9 H, Absolute Eosinophils 0.1, Absolute Basophils 0 09/27/17 2315: Virus Culture Pending Microbiology 09/28 1057 LOWER RESP: AFB Culture with PCR Identification - [facility] 09/28 1057 LOWER RESP: AFB Smear Con[facility] - [facility] 09/28 0445 URINE ROUT: Legionella Antigen - COMP 09/28 044 URINE ROUT: Streptococcus pneumoniae Antigen (M - COMP 09/28 0210 LOWER RESP: Respiratory Culture - [facility] 09/28 021 LOWER RESP: Gram Stain - [facility] 09/28 0047 BLOOD: Blood Culture - RECD 09/27 2355 BLOOD: Blood Culture - RES 09/27 2315 NASOPHARYN: Influenza Virus A & B Rapid Smear - COMP Assessment/Plan Assessment: 72 yo F with h/o left ocular melanoma s/p proton beam radiation surgery (2006), chronic right middle lobe syndrome (Lady [place]stadt syndrome), multiple episodes of pneumonia (last in 2016), chronic arthritis, is here for evaluation of sudden onset shaking chills, difficulty breathing, congestion, dry cough and pain in the left shoulder blade with pleuritic pain that started around 4 pm one day prior to admission. Tmax 100.4 at home. She reports feeling weak, fatigued and ' queasy' to her stomach in the past 1 week Admitted to general medicine floor Problem list 1. Community acquired pneumonia multilobar pneumonia 2. History of RML/ Lady Carl[place] syndrome 3. Recurrent pneumonia Plan Dense infiltrated PATRICIA and increasing reticular nodular change in the RUL Possibley pneumonia. Started on IV ceftriaxone, doxycycline. TRC/Nebs. Unable to produce phlegm. Try to obtain sputum of AFB. Immunoglobulins, ESR, CRP are requested. Panculture if spikes fever. Pulm consult with . DVT prophylaxis SC lovenox Code status full code Problem List: 1. Right middle lobe pneumonia 2. Pleurisy Pain Ratin Pain Location: right chest region Pain Goal: Pain 4 or less Pain Plan: tylenol prn Tomorrow's Labs & Rationales: cbc Barrera TURCIOS,Misty 09/28/17 1108: Attending MD Review Statement Attending Statement Attending MD Statement: examined this patient, discuss w/resident/PA/HOURLY CAREGIVER, agreed w/resident/PA/HOURLY CAREGIVER, reviewed EMR data (avail), discussed with nursing, discussed with case mgmt, reviewed images, amended to note Attending Assessment/Plan: Patient seen and examined, still feels exhausted and did complain of left-sided back and her pain. Patient is admitted with pneumonia. Not requiring any O2 at present. Vital Signs Date Time Temp Pulse Resp B/P B/P Pulse O2 O2 Flow FiO2 Mean Ox Delivery Rate 09/28 0648 98.5 77 18 132/66 94 Room Air 09/28 0400 95 09/28 0400 98.7 77 20 110/70 95 Room Air 09/28 0219 99.0 78 18 129/76 96 Room Air 09/27 2352 Room Air 09/27 2317 101.0 104 22 165/87 97 Room Air on exam; aox3, nad. cv; s1,s2, rrr resp; course bs on left side abd: soft, nt, bs+ ext; no edema. Laboratory Tests 09/28 09/28 0645 0445 Chemistry Sodium (137 - 145 mmol/L) 144 Potassium (3.5 - 5.1 mmol/L) 3.8 Chloride (98 - 107 mmol/L) 110 H Carbon Dioxide (22 - 30 mmol/L) 26 Anion Gap (5 - 16) 7 BUN (7 - 17 mg/dL) 13 Creatinine (0.5 - 1.0 mg/dL) 0.5 Estimated GFR (>60 ml/min) > 60 BUN/Creatinine Ratio (7 - 25 %) 26.0 H Hematology CBC w Diff NO MAN DIFF REQ WBC (4.8 - 10.8 /CUMM) 9.2 RBC (4.20 - 5.40 /CUMM) 3.70 L Hgb (12.0 - 16.0 G/DL) 11.3 L Hct (37 - 47 %) 34.0 L MCV (81.0 - 99.0 FL) 91.8 MCH (27.0 - 31.0 PG) 30.6 MCHC (33.0 - 37.0 G/DL) 33.4 RDW (11.5 - 14.5 %) 14.5 Plt Count (130 - 400 /CUMM) 271 MPV (7.4 - 10.4 FL) 8.6 Gran % (42.2 - 75.2 %) 78.6 H Lymphocytes % (20.5 - 51.1 %) 9.4 L Monocytes % (1.7 - 9.3 %) 10.9 H Eosinophils % (0 - 5 %) 0.8 Basophils % (0.0 - 2.0 %) 0.3 Absolute Granulocytes (1.4 - 6.5 /CUMM) 7.2 H Absolute Lymphocytes (1.2 - 3.4 /CUMM) 0.9 L Absolute Monocytes (0.10 - 0.60 /CUMM) 1.0 H Absolute Eosinophils (0.0 - 0.7 /CUMM) 0.1 Absolute Basophils (0.0 - 0.2 /CUMM) 0 Urines Urine Color (YEL,AMB,STR) STRAW Urine Clarity (CLEAR) CLEAR Urine pH (5.0 - 8.0) 6.5 Ur Specific [place] (1.001 - 1.035) <= 1.005 Urine Protein (NEG,<30 MG/DL) NEG Urine Ketones (NEG) NEG Urine Nitrite (NEG) NEG Urine Bilirubin (NEG) NEG Urine Urobilinogen (0.1 - 1.0 EU/dl) 0.2 Ur Leukocyte Esterase (NEG) NEG Ur Microscopic EXAM NOT REQUIRED Urine Hemoglobin (NEG) NEG Urine Glucose (N MG/DL) NEG 09/28 09/27 09/27 0217 2344 2315 Chemistry Sodium (137 - 145 mmol/L) 140 Potassium (3.5 - 5.1 mmol/L) 4.0 Chloride (98 - 107 mmol/L) 105 Carbon Dioxide (22 - 30 mmol/L) 24 Anion Gap (5 - 16) 11 BUN (7 - 17 mg/dL) 19 H Creatinine (0.5 - 1.0 mg/dL) 0.5 Estimated GFR (>60 ml/min) > 60 BUN/Creatinine Ratio (7 - 25 %) 38.0 H Glucose (65 - 99 mg/dL) 98 Lactic Acid (0.7 - 2.1 mmol/L) Cancelled 0.8 Calcium (8.4 - 10.2 mg/dL) 9.4 Total Bilirubin (0.2 - 1.3 mg/dL) 0.7 AST (14 - 36 U/L) 36 ALT (9 - 52 U/L) 33 Alkaline Phosphatase (<127 U/L) 84 Troponin I (< 0.11 ng/ml) < 0.01 Total Protein (6.3 - 8.2 g/dL) 6.5 Albumin (3.5 - 5.0 g/dL) 4.0 Globulin (1.9 - 4.2 gm/dL) 2.5 Albumin/Globulin Ratio (1.1 - 2.2 %) 1.6 Hematology CBC w Diff NO MAN DIFF REQ WBC (4.8 - 10.8 /CUMM) 11.3 H RBC (4.20 - 5.40 /CUMM) 4.01 L Hgb (12.0 - 16.0 G/DL) 12.1 Hct (37 - 47 %) 36.1 L MCV (81.0 - 99.0 FL) 89.9 MCH (27.0 - 31.0 PG) 30.3 MCHC (33.0 - 37.0 G/DL) 33.6 RDW (11.5 - 14.5 %) 13.6 Plt Count (130 - 400 /CUMM) 301 MPV (7.4 - 10.4 FL) 8.6 Gran % (42.2 - 75.2 %) 84.3 H Lymphocytes % (20.5 - 51.1 %) 7.1 L Monocytes % (1.7 - 9.3 %) 7.6 Eosinophils % (0 - 5 %) 0.8 Basophils % (0.0 - 2.0 %) 0.2 Absolute Granulocytes (1.4 - 6.5 /CUMM) 9.6 H Absolute Lymphocytes (1.2 - 3.4 /CUMM) 0.8 L Absolute Monocytes (0.10 - 0.60 /CUMM) 0.9 H Absolute Eosinophils (0.0 - 0.7 /CUMM) 0.1 Absolute Basophils (0.0 - 0.2 /CUMM) 0 Serology Virus Culture Pending A/P: 72 y/o F with pmh sig for multiple episodes of pneumonia, lady windermere syndrome, 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 Patient currently on ceftriaxone and doxycycline. Will continue current antibiotics and try to obtain some sputum sample. We'll follow-up on the sputum culture if patient able to provide sample. Please obtain pulmonology consult. Please add TRC nebs prn. Continue the rest of the management. Patient was encouraged to ambulate. DVT prophylaxis: Lovenox.
[2017-09-28 09:30] LABS: ABSOLUTE BASOPHIL COUNT 0 /CUMM (0.0-0.2); ABSOLUTE EOSINOPHIL COUNT 0.1 /CUMM (0.0-0.7); ABSOLUTE GRANULOCYTE CT 7.2 /CUMM (1.4-6.5); ABSOLUTE LYMPH COUNT 0.9 /CUMM (1.2-3.4); BASOPHIL % 0.3 % (0.0-2.0); EOSINOPHIL % 0.8 % (0-5); GRANULOCYTE % 78.6 % (42.2-75.2); MEAN CORPUSCULAR HGB 30.6 PG (27.0-31.0); MEAN CORPUSCULAR HGB CONC 33.4 G/DL (33.0-37.0); MEAN CORPUSCULAR VOLUME 91.8 FL (81.0-99.0); MEAN PLATELET VOLUME 8.6 FL (7.4-10.4); PLATELET COUNT 271 /CUMM (130-400); RBC DISTRIBUTION WIDTH 14.5 % (11.5-14.5); WHITE BLOOD CELL COUNT 9.2 /CUMM (4.8-10.8)
--- NOTE | 2017-09-28 12:30 | Cons- Pulmonary ---
General Information and HPI Consulting Request Date of Consult: 09/28/17 Requested By: Dr. Rust Reason for Consult: pneumonia Source of Information: patient Exam Limitations: no limitations History of Present Illness: 72 year old woman. Known to me from the office. Previously has seen Dr. Fonseca. Recent visit in August. She has a history of recurrent pneumonia. The patient has had pneumonia for several years a few times in the past. She has severe OA and is followed by Dr. Jones. The patient was seen by Dr. Marshall and she was found to have environmental allergies. It was not recommended that the patient receive desensitization ingestions. Was at [facility] and began to feel afterwards chills, dry cough, then had a fever of 101 and mild leukocytosis. She was found to have a PATRICIA pna and tree in bud opacities on the right. She is not producing any sputum. Some pleuritic discomfort, no n/v/d/c. No palpitations, no dizziness. Feeling fatigud, but overall better. Allergies/Medications Allergies: Coded Allergies: Penicillins (RASH 10/21/16) Sulfa (Sulfonamide Antibiotics) (RASH 10/21/16) azithromycin (SEVERE GI PAIN, DIARRHEA 10/21/16) Home Med List: Albuterol Sulfate 2.5 MG/3 ML (0.083 %) VIAL.NEB 1 Vial INH/NURYS QAM RIGHT MIDDLE LOBE SYNDROME (Reported) Ascorbate Calcium (Vitamin C) (Unknown Strength) TABLET (Unknown Dose) PO DAILY SUPPLEMENT (Reported) Moxifloxacin HCl (Avelox) 400 MG TABLET 1 TAB PO DAILY pneumonia Multivitamin (Multi-Day Vitamins) 1 EACH TABLET 1 TAB PO DAILY SUPPLEMENT ( Reported) Current Medications: Current Medications Sig/Dwain Start time Last Medication Dose Route Stop Time Status Admin Acetaminophen 650 MG Q6P PRN 09/28 0300 AC PO Ceftriaxone Sodium 1,000 MG DAILY 09/28 1000 AC 09/28 IV 0820 Ceftriaxone Sodium 0 .STK-MED ONE 09/28 0116 DC .ROUTE Ceftriaxone Sodium 1,000 MG ONCE ONE 09/28 010 DC 09/28 IV 09/28 0101 0127 Doxycycline Hyclate 100 MG DAILY 09/28 1000 AC 09/28 Sodium Chloride 100 ML IV 1014 Doxycycline Hyclate 100 MG ONCE ONE 09/28 99 DC 09/28 Dextrose/Water 100 ML IV 09/28 0205 0127 Enoxaparin Sodium 40 MG DAILY 09/28 1000 AC 09/28 SC 0821 Guaifenesin 600 MG Q12 09/28 1000 AC 09/28 PO 1013 Guaifenesin/ 10 ML Q6P PRN 09/28 0500 AC Dextromethorphan PO Ibuprofen 600 MG Q6P PRN 09/28 0300 AC 09/28 PO 0605 Ondansetron HCl 4 MG Q6P PRN 09/28 0300 AC IV Ondansetron HCl 4 MG ONCE ONE 09/28 0100 DC 09/28 IV 09/28 0101 0100 Ondansetron HCl 0 .STK-MED ONE 09/28 0058 DC .ROUTE Sodium Chloride 1,000 ML ONCE ONE 09/28 0230 AC 09/28 IV 09/28 1229 0252 Tramadol HCl 50 MG ONCE ONE 09/28 0100 DC 09/28 PO 09/28 0101 0059 Tramadol HCl 0 .STK-MED ONE 09/28 0058 DC PO Review of Systems Comments 18 point review of systems was performed and reviewed. Please see pertinent positives and pertinent negatives in the HPI. Otherwise ROS is negative. 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 Ambulation: independent IADLs Independent: shopping, housework, finances, food prep, telephone, transportation , medication admin. Exam & Diagnostic Data Last 24 Hrs of Vital Signs/I&O Vital Signs Date Time Temp Pulse Resp B/P B/P Pulse O2 O2 Flow FiO2 Mean Ox Delivery Rate 09/28 0648 98.5 77 18 132/66 94 Room Air 09/28 0400 95 09/28 0400 98.7 77 20 110/70 95 Room Air 09/28 0219 99.0 78 18 129/76 96 Room Air 09/27 2352 Room Air 09/27 2317 101.0 104 22 165/87 97 Room Air Intake & Output 09/28 1600 09/28 0800 09/28 0000 Intake Total 1040 Output Total 550 Balance 490 Intake, IV 800 Intake, Oral 240 Output, Urine 550 Patient 138 lb 143 lb Weight Physical Exam Other Physical Findings: Generally - Awake, alert and comfortable without distress Head and neck - normocephalic, atraumatic, EOMI grossly intact Cardiovascular - S1, S2, no murmurs, rubs or gallops Lungs - rare left mid lung rhonchi Abdomen - Bowel sounds positive, soft, non-tender Extremities - without edema Last 48 Hrs of Labs/Arthur: Laboratory Tests 09/28/17 0645: Anion Gap 7, Estimated GFR > 60, BUN/Creatinine Ratio 26.0 H, CBC w Diff NO MAN DIFF REQ, RBC 3.70 L, MCV 91.8, MCH 30.6, MCHC 33.4, RDW 14.5, MPV 8.6, Gran % 78.6 H, Lymphocytes % 9.4 L, Monocytes % 10.9 H, Eosinophils % 0.8, Basophils % 0.3, Absolute Granulocytes 7.2 H, Absolute Lymphocytes 0.9 L, Absolute Monocytes 1.0 H, Absolute Eosinophils 0.1, Absolute Basophils 0 09/28/17 0445: Urine Color STRAW, Urine Clarity CLEAR, Urine pH 6.5, Ur Specific Kamas <= 1.005, Urine Protein NEG, Urine Ketones NEG, Urine Nitrite NEG, Urine Bilirubin NEG, Urine Urobilinogen 0.2, Ur Leukocyte Esterase NEG, Ur Microscopic EXAM NOT REQUIRED, Urine Hemoglobin NEG, Urine Glucose NEG 09/28/17 0217: Lactic Acid Cancelled 09/27/17 2344: Anion Gap 11, Estimated GFR > 60, BUN/Creatinine Ratio 38.0 H, Glucose 98, Lactic Acid 0.8, Calcium 9.4, Total Bilirubin 0.7, AST 36, ALT 33, Alkaline Phosphatase 84, Troponin I < 0.01, Total Protein 6.5, Albumin 4.0, Globulin 2.5, Albumin/Globulin Ratio 1.6, CBC w Diff NO MAN DIFF REQ, RBC 4.01 L, MCV 89.9, MCH 30.3, MCHC 33.6, RDW 13.6, MPV 8.6, Gran % 84.3 H, Lymphocytes % 7.1 L, Monocytes % 7.6, Eosinophils % 0.8, Basophils % 0.2, Absolute Granulocytes 9.6 H, Absolute Lymphocytes 0.8 L, Absolute Monocytes 0.9 H, Absolute Eosinophils 0.1, Absolute Basophils 0 09/27/175: Virus Culture Pending Microbiology 09/28 444 URINE ROUT: Legionella Antigen - COMP 09/28 444 URINE ROUT: Streptococcus pneumoniae Antigen (M - COMP 09/27 2314 NASOPHARYN: Influenza Virus A & B Rapid Smear - COMP Assessment/Plan Impression/Plan: Imprsesion 72 year old woman * PATRICIA community acquired pneumonia Plan -given previous multiple events of pneumonia an immunodeficiency or possibly cryptogenic organizing pneumonia can be in the differential diagnosis, however MAC disease if very possible -cont current abx -no sputum at this time, if produces ensure to send a culture including AFB smear -check quantiferon gold -ESR, CRP, JOSÉ MANUEL -would recommend to check immunoglobulins and subsets to rule out an immunodeficiency -she also has unclear liver lesions for which there is no specific etiology, consider a GI consultation -TRC/nebs DVT prophylaxis at all times Consult Acknowledgment - Thank you for your consult request.
[2017-09-28 14:23] VITALS: BP 130/80
[2017-09-28 21:42] VITALS: BP 110/60
[2017-09-29 05:56] VITALS: BP 126/64
--- NOTE | 2017-09-29 07:21 | PN- Housestaff ---
Minnie TURCIOS,[place] 09/29/17 0720: Subjective Follow-up For: Infiltrates on the PATRICIA Possible cryptogenic pnumonia Subjective: seen and examined Patient reports unable to bring up the phlegm. Had a temp of 100.7 yesterday, felt nauseous and unable to have dinner. Today she feels much better, able to walk. Review of Systems Constitutional: Reports: see HPI. Objective Last 24 Hrs of Vital Signs/I&O Vital Signs Date Time Temp Pulse Resp B/P B/P Pulse O2 O2 Flow FiO2 Mean Ox Delivery Rate 09/29 0556 98.6 77 20 126/64 95 Room Air 09/29 0000 93 Room Air 09/28 2240 Room Air Room Air 09/28 2142 99.5 85 18 110/60 93 09/28 1955 99.8 09/28 1800 100.0 09/28 1646 100.7 09/28 1642 100.7 09/28 1423 99.5 96 20 130/80 90 Room Air Intake & Output 09/29 0800 09/29 0000 09/28 1600 Intake Total 250 250 470 Output Total Balance 250 250 470 Intake, IV 10 10 130 Intake, Oral 240 240 340 Patient 65.091 kg Weight Physical Exam General Appearance: Alert, Oriented X3, Cooperative Skin: No Rashes HEENT: Atraumatic, PERRLA, EOMI Neck: Supple Cardiovascular: Normal S1, Normal S2 Lungs: Clear to Auscultation, Normal Air Movement Abdomen: Normal Bowel Sounds, Soft, No Tenderness Neurological: Normal Gait, Normal Speech, Strength at 5/5 X4 Ext Extremities: No Clubbing, No Cyanosis, No Edema Vascular: Normal Pulses, Pulses Symmetrical Current Medications: Current Medications Sig/Dwain Start time Last Medication Dose Route Stop Time Status Admin Acetaminophen 650 MG Q6P PRN 09/28 0300 AC 09/28 PO 1646 Albuterol Sulfate 3 ML Q4P PRN 09/28 2300 AC INH Ceftriaxone Sodium 1,000 MG DAILY 09/28 1000 AC 09/29 IV 1007 Doxycycline Hyclate 100 MG DAILY 09/28 1000 AC 09/29 Sodium Chloride 100 ML IV 1009 Enoxaparin Sodium 40 MG DAILY 09/28 1000 AC 09/29 SC 1007 Guaifenesin 600 MG Q12 09/28 1000 AC 09/29 PO 1008 Guaifenesin/ 10 ML Q6P PRN 09/28 0500 AC Dextromethorphan PO Ibuprofen 600 MG Q6P PRN 09/28 0300 AC 09/29 PO 0530 Ondansetron HCl 4 MG Q6P PRN 09/28 0300 AC 09/28 IV 1646 Sodium Chloride 1,000 ML ONCE ONE 09/28 0230 DC 09/28 IV 09/28 1229 0252 Last 24 Hrs of Lab/Arthur Results Last 24 Hrs of Labs/Mics: Laboratory Tests 09/29/17 0715: Anion Gap 7, Estimated GFR > 60, BUN/Creatinine Ratio 25.0, C-Reactive Prot, Quant > 9.0 H, C-React Prot High Sens > 15.0 H, CBC w Diff NO MAN DIFF REQ, RBC 3.79 L, MCV 91.4, MCH 30.4, MCHC 33.3, RDW 13.8, MPV 8.6, Gran % 76.5 H, Lymphocytes % 9.1 L, Monocytes % 11.1 H, Eosinophils % 3.0, Basophils % 0.3, Absolute Granulocytes 6.6 H, Absolute Lymphocytes 0.8 L, Absolute Monocytes 1.0 H, Absolute Eosinophils 0.3, Absolute Basophils 0, ESR Westergren Pending 09/29/17 0600: IgA Pending, IgM Pending, Serum IgG Pending 09/28/17 1400: TB Test (QFT) Mitogen Pending, TB Test Mitogen - Nil Pending, TB Test Antigen - Nil Pending, TB Test (QFT) Interp Pending Microbiology 09/28 1057 LOWER RESP: AFB Culture with PCR Identification - COLB 09/28 1057 LOWER RESP: AFB Smear Concentration - COLB Assessment/Plan Assessment: 72 yo F with 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 Tmax 100.4 at home. 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 Recurrent pneumonia Plan Dense infiltrated PATRICIA and increasing reticular nodular change in the RUL Possibly pneumonia vs cryptogenic pneumonia. continue on IV ceftriaxone, IV doxycycline. TRC/Nebs. Unable to produce phlegm. Try to obtain sputum of AFB. Immunoglobulins pending. ESR and CRP elevated indicating inflammatory process. Panculture if spikes fever. Pulm consult with . She is able to walk around, likely discharge tomorrow. DVT prophylaxis SC lovenox Code status full code Problem List: 1. Right middle lobe pneumonia 2. Full code status 3. Left upper lobe pneumonia Pain Ratin Pain Location: Midthoracic region Pain Goal: Pain 4 or less Pain Plan: Tyelonol prn Tomorrow's Labs & Rationales: none Misty Rust MD 09/29/17 1147: Attending MD Review Statement Attending Statement Attending MD Statement: examined this patient, discuss w/resident/PA/GLASS ENGRAVER, agreed w/resident/PA/GLASS ENGRAVER, reviewed EMR data (avail), discussed with nursing, discussed with case mgmt, reviewed images, amended to note Attending Assessment/Plan: Patient seen and examined, overall feeling better. Less short of breath and less pain. Did have a fever spike last night. Vital Signs Date Time Temp Pulse Resp B/P B/P Pulse O2 O2 Flow FiO2 Mean Ox Delivery Rate 09/29 1110 96 Room Air Room Air 09/29 0556 98.6 77 20 126/64 95 Room Air 09/29 0000 93 Room Air 09/28 2240 Room Air Room Air 09/28 2142 99.5 85 18 110/60 93 09/28 1955 99.8 09/28 1800 100.0 09/28 1646 100.7 09/28 1642 100.7 09/28 1423 99.5 96 20 130/80 90 Room Air on exam; aox3, nad. cv; s1,s2, rrr resp; somewhat course breath sounds left side. abd; soft, nt, bs+ ext; no edema Laboratory Tests 09/29 09/29 09/28 0715 0600 1400 Chemistry Sodium (137 - 145 mmol/L) 141 Potassium (3.5 - 5.1 mmol/L) 3.9 Chloride (98 - 107 mmol/L) 108 H Carbon Dioxide (22 - 30 mmol/L) 26 Anion Gap (5 - 16) 7 BUN (7 - 17 mg/dL) 15 Creatinine (0.5 - 1.0 mg/dL) 0.6 Estimated GFR (>60 ml/min) > 60 BUN/Creatinine Ratio (7 - 25 %) 25.0 C-Reactive Prot, Quant (<1.0 mg/dL) > 9.0 H C-React Prot High Sens (1.0 - 3.0 mg/L) > 15.0 H Hematology CBC w Diff NO MAN DIFF REQ WBC (4.8 - 10.8 /CUMM) 8.7 RBC (4.20 - 5.40 /CUMM) 3.79 L Hgb (12.0 - 16.0 G/DL) 11.5 L Hct (37 - 47 %) 34.7 L MCV (81.0 - 99.0 FL) 91.4 MCH (27.0 - 31.0 PG) 30.4 MCHC (33.0 - 37.0 G/DL) 33.3 RDW (11.5 - 14.5 %) 13.8 Plt Count (130 - 400 /CUMM) 264 MPV (7.4 - 10.4 FL) 8.6 Gran % (42.2 - 75.2 %) 76.5 H Lymphocytes % (20.5 - 51.1 %) 9.1 L Monocytes % (1.7 - 9.3 %) 11.1 H Eosinophils % (0 - 5 %) 3.0 Basophils % (0.0 - 2.0 %) 0.3 Absolute Granulocytes (1.4 - 6.5 /CUMM) 6.6 H Absolute Lymphocytes (1.2 - 3.4 /CUMM) 0.8 L Absolute Monocytes (0.10 - 0.60 /CUMM) 1.0 H Absolute Eosinophils (0.0 - 0.7 /CUMM) 0.3 Absolute Basophils (0.0 - 0.2 /CUMM) 0 ESR Westergren (0 - 20 MM) 57 H Immunology IgA Pending IgM Pending Other Body Source Serum IgG Pending Serology TB Test (QFT) Mitogen Pending TB Test Mitogen - Nil Pending TB Test Antigen - Nil Pending TB Test (QFT) Interp Pending A/P; 72 y/o F with pmh sig for multiple episodes of pneumonia, lady windermere syndrome, 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 Appreciate pulmonology input. We'll follow-up on the testing recommended by Dr. Contreras. Patient to have a fever spike last night. We'll continue the current antibiotics and try to obtain sputum culture. Continue TRC nebs. Patient encouraged to ambulate. DVT prophylaxis: Lovenox. If continues to improve, likely discharge home tomorrow on oral antibiotics.
[2017-09-29 09:35] LABS: ABSOLUTE BASOPHIL COUNT 0 /CUMM (0.0-0.2); ABSOLUTE EOSINOPHIL COUNT 0.3 /CUMM (0.0-0.7); ABSOLUTE GRANULOCYTE CT 6.6 /CUMM (1.4-6.5); ABSOLUTE LYMPH COUNT 0.8 /CUMM (1.2-3.4); BASOPHIL % 0.3 % (0.0-2.0); GRANULOCYTE % 76.5 % (42.2-75.2); HEMATOCRIT 34.7 % (37-47); MEAN CORPUSCULAR HGB 30.4 PG (27.0-31.0); MEAN CORPUSCULAR HGB CONC 33.3 G/DL (33.0-37.0); MEAN CORPUSCULAR VOLUME 91.4 FL (81.0-99.0); MEAN PLATELET VOLUME 8.6 FL (7.4-10.4); PLATELET COUNT 264 /CUMM (130-400); RBC DISTRIBUTION WIDTH 13.8 % (11.5-14.5); RED BLOOD CELL CT 3.79 /CUMM (4.20-5.40); WHITE BLOOD CELL COUNT 8.7 /CUMM (4.8-10.8)
[2017-09-29 14:11] VITALS: BP 138/80
--- NOTE | 2017-09-29 15:18 | PN- Pulmonary ---
Subjective HPI/Critical Care Issues: pt seen and examined doing much better Objective Current Medications: Current Medications Sig/Dwain Start time Last Medication Dose Route Stop Time Status Admin Acetaminophen 650 MG Q6P PRN 09/28 0300 AC 09/28 PO 1646 Albuterol Sulfate 3 ML Q4P PRN 09/28 2300 AC INH Ceftriaxone Sodium 1,000 MG DAILY 09/28 1000 AC 09/29 IV 1007 Doxycycline Hyclate 100 MG DAILY 09/28 1000 AC 09/29 Sodium Chloride 100 ML IV 1009 Enoxaparin Sodium 40 MG DAILY 09/28 1000 AC 09/29 SC 1007 Guaifenesin 600 MG Q12 09/28 1000 AC 09/29 PO 1008 Guaifenesin/ 10 ML Q6P PRN 09/28 0500 AC Dextromethorphan PO Ibuprofen 600 MG Q6P PRN 09/28 0300 AC 09/29 PO 1400 Ondansetron HCl 4 MG Q6P PRN 09/28 0300 AC 09/28 IV 1646 Patient Medication 1 ED ONE ONE 09/29 1530 Teaching ED 09/29 1531 Vital Signs & I&O Last 24 Hrs of Vitals and I&O: Vital Signs Date Time Temp Pulse Resp B/P B/P Pulse O2 O2 Flow FiO2 Mean Ox Delivery Rate 09/29 1411 997.5 82 20 138/80 98 Room Air 09/29 1110 96 Room Air Room Air 09/29 0800 Room Air Room Air 09/29 0556 98.6 77 20 126/64 95 Room Air 09/29 0000 93 Room Air 09/28 2240 Room Air Room Air 09/28 2142 99.5 85 18 110/60 93 09/28 1955 99.8 09/28 1800 100.0 09/28 1646 100.7 09/28 1642 100.7 Intake & Output 09/29 1600 09/29 0800 09/29 0000 Intake Total 700 250 250 Output Total Balance 700 250 250 Intake, IV 100 10 10 Intake, Oral 600 240 240 Patient 144 lb Weight Exam Other Physical Findings: Generally - Awake, alert and comfortable without distress Head and neck - normocephalic, atraumatic, EOMI grossly intact Cardiovascular - S1, S2, no murmurs, rubs or gallops Lungs - rare left mid lung rhonchi Abdomen - Bowel sounds positive, soft, non-tender Extremities - without edema Results Last 24 Hrs of Lab Results: Laboratory Tests 09/29/17 0715: Anion Gap 7, Estimated GFR > 60, BUN/Creatinine Ratio 25.0, C-Reactive Prot, Quant > 9.0 H, C-React Prot High Sens > 15.0 H, CBC w Diff NO MAN DIFF REQ, RBC 3.79 L, MCV 91.4, MCH 30.4, MCHC 33.3, RDW 13.8, MPV 8.6, Gran % 76.5 H, Lymphocytes % 9.1 L, Monocytes % 11.1 H, Eosinophils % 3.0, Basophils % 0.3, Absolute Granulocytes 6.6 H, Absolute Lymphocytes 0.8 L, Absolute Monocytes 1.0 H, Absolute Eosinophils 0.3, Absolute Basophils 0, ESR Westergren 57 H 09/29/17 0600: IgA Pending, IgM Pending, Serum IgG Pending Impression/Plan Impression/Plan Impression/Plan: Imprsesion 72 year old woman * PATRICIA community acquired pneumonia Plan -f/u requested studies -doing better -dc planning if okay for tomorrow -cont abx -TRC/nebs DVT prophylaxis at all times
[2017-09-29 22:37] VITALS: BP 106/70
[2017-09-30 06:40] VITALS: BP 135/71
--- NOTE | 2017-09-30 07:18 | PN- Housestaff ---
Minnie TURCIOS,[place] 09/30/17 0718: Subjective Follow-up For: Community acquired pneumonia Subjective: Seen and examined She feels little worse. She did take Mucinex which made her cough leading to nausea. She remained nauseaous for a while and unable to sleep well. She still had the pain with breathing since admission. Review of Systems Constitutional: Reports: see HPI. Objective Last 24 Hrs of Vital Signs/I&O Vital Signs Date Time Temp Pulse Resp B/P B/P Pulse O2 O2 Flow FiO2 Mean Ox Delivery Rate 09/30 0640 99.6 80 20 135/71 94 Room Air 09/30 0044 Room Air 09/29 2237 99.3 78 18 106/70 93 Room Air 09/29 1411 997.5 82 20 138/80 98 Room Air 09/29 1110 96 Room Air Room Air 09/29 0800 Room Air Room Air Intake & Output 09/30 0800 09/30 0000 09/29 1600 Intake Total 120 700 Output Total Balance 120 700 Intake, IV 100 Intake, Oral 120 600 Physical Exam General Appearance: Alert, Oriented X3, Cooperative, Mild Distress Skin: No Rashes, No Breakdown Skin Temp/Moisture Exam: Warm/Dry HEENT: Atraumatic, PERRLA, EOMI Neck: Supple Cardiovascular: Normal S1, Normal S2 Lungs: Normal Air Movement, decrease breath sounds on the right side Abdomen: Normal Bowel Sounds, Soft, No Tenderness Neurological: Normal Gait, Normal Speech, Strength at 5/5 X4 Ext, Normal Tone, Sensation Intact Extremities: No Clubbing, No Cyanosis Current Medications: Current Medications Sig/Dwain Start time Last Medication Dose Route Stop Time Status Admin Acetaminophen 650 MG Q6P PRN 09/28 0300 AC 09/28 PO 1646 Albuterol Sulfate 3 ML Q4P PRN 09/28 2300 AC 09/30 INH 1122 Ceftriaxone Sodium 1,000 MG DAILY 09/28 1000 AC 09/29 IV 1007 Cephalexin 250 MG Q6H 09/30 1500 AC PO Doxycycline Hyclate 100 MG DAILY 09/30 1338 AC PO Doxycycline Hyclate 100 MG DAILY 09/28 1000 AC 09/29 Sodium Chloride 100 ML IV 1009 Enoxaparin Sodium 40 MG DAILY 09/28 1000 AC 09/30 SC 0936 Guaifenesin 600 MG Q12 09/28 1000 AC 09/29 PO 2121 Guaifenesin/ 10 ML Q6P PRN 09/28 0500 AC Dextromethorphan PO Ibuprofen 600 MG Q6P PRN 09/28 0300 AC 09/30 PO 0827 Ondansetron HCl 4 MG .STK-MED ONE 09/30 0020 DC IM 09/30 0021 Ondansetron HCl 4 MG Q6P PRN 09/28 0300 AC 09/30 IV 0021 Patient Medication 1 ED ONE ONE 09/29 1530 DC Teaching ED 09/29 1531 Assessment/Plan Assessment: 72 yo F with 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 Tmax 100.4 at home. She reports feeling weak, fatigued and ' queasy' to her stomach in the past 1 week at admission. Admitted to general medicine floor Problem list 1. Community acquired pneumonia 2. History of RML/ Lady [place] syndrome 3. Recurrent pneumonia Plan Dense infiltrated PATRICIA and increasing reticular nodular change in the RUL Possibly pneumonia vs cryptogenic pneumonia. She lost her IV line so started on oral doxycycline and oral ceftin TRC/Nebs. Unable to produce phlegm. Try to obtain sputum of AFB. Immunoglobulins pending. ESR and CRP elevated indicating inflammatory process. Panculture if spikes fever. Pulm consult with . She is able to walk around, likely discharge tomorrow. DVT prophylaxis SC lovenox Code status Problem List: 1. Left upper lobe pneumonia 2. Right middle lobe pneumonia Pain Ratin Pain Location: n/a Pain Goal: Pain 4 or less Pain Plan: tylenol prn Tomorrow's Labs & Rationales: none Misty Rust MD 09/30/17 1123: Attending MD Review Statement Attending Statement Attending MD Statement: examined this patient, discuss w/resident/PA/COMMUNITY EDUCATOR, agreed w/resident/PA/COMMUNITY EDUCATOR, reviewed EMR data (avail), discussed with nursing, discussed with case mgmt, reviewed images, amended to note Attending Assessment/Plan: Patient seen and examined, not feeling better today. Said that she did not have a good night sleep. She was coughing very bad last night and actually gathered and felt nauseous. Vital Signs Date Time Temp Pulse Resp B/P B/P Pulse O2 O2 Flow FiO2 Mean Ox Delivery Rate 09/30 1122 95 Room Air 09/30 0800 94 09/30 0640 99.6 80 20 135/71 94 Room Air 09/30 0044 Room Air 09/29 2237 99.3 78 18 106/70 93 Room Air 09/29 1411 997.5 82 20 138/80 98 Room Air on exam; aox 3, nad. cv; s1,s2, rrr resp; clear abd; soft, nt, bs+ ext; no edema. 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 We'll keep the patient on IV antibiotics today. TRC nebs. So far her JOSÉ MANUEL titer is negative but no other studies are back yet. DVT prophylaxis: Lovenox. Patient was encouraged to ambulate some. If improves tomorrow then possibly discharge home tomorrow on oral antibiotics.
--- NOTE | 2017-09-30 10:53 | PN- Pulmonary ---
Subjective HPI/Critical Care Issues: Patient seen and examined this morning. She had a coughing spell last night and is now fatigued and short of breath which is starting to improve however she had minimal sleep. Objective Current Medications: Current Medications Sig/Dwain Start time Last Medication Dose Route Stop Time Status Admin Acetaminophen 650 MG Q6P PRN 09/28 0300 AC 09/28 PO 1646 Albuterol Sulfate 3 ML Q4P PRN 09/28 2300 AC 09/30 INH 0039 Ceftriaxone Sodium 1,000 MG DAILY 09/28 1000 AC 09/29 IV 1007 Doxycycline Hyclate 100 MG DAILY 09/28 1000 AC 09/29 Sodium Chloride 100 ML IV 1009 Enoxaparin Sodium 40 MG DAILY 09/28 1000 AC 09/30 SC 0936 Guaifenesin 600 MG Q12 09/28 1000 AC 09/29 PO 2121 Guaifenesin/ 10 ML Q6P PRN 09/28 0500 AC Dextromethorphan PO Ibuprofen 600 MG .STK-MED ONE 09/29 1358 DC PO 09/29 1359 Ibuprofen 600 MG Q6P PRN 09/28 0300 AC 09/30 PO 0827 Ondansetron HCl 4 MG .STK-MED ONE 09/30 0020 DC IM 09/30 0021 Ondansetron HCl 4 MG Q6P PRN 09/28 0300 AC 09/30 IV 0021 Patient Medication 1 ED ONE ONE 09/29 1530 DC Teaching ED 09/29 1531 Vital Signs & I&O Last 24 Hrs of Vitals and I&O: Vital Signs Date Time Temp Pulse Resp B/P B/P Pulse O2 O2 Flow FiO2 Mean Ox Delivery Rate 09/30 0800 94 09/30 0640 99.6 80 20 135/71 94 Room Air 09/30 0044 Room Air 09/29 2237 99.3 78 18 106/70 93 Room Air 09/29 1411 997.5 82 20 138/80 98 Room Air 09/29 1110 96 Room Air Room Air Intake & Output 09/30 1600 09/30 0800 09/30 0000 Intake Total 120 Output Total Balance 120 Intake, Oral 120 Exam Other Physical Findings: Generally - Awake, alert and comfortable without distress Head and neck - normocephalic, atraumatic, EOMI grossly intact Cardiovascular - S1, S2, no murmurs, rubs or gallops Lungs - rare rhonchi bilaterally Abdomen - Bowel sounds positive, soft, non-tender Extremities - without edema Impression/Plan Impression/Plan Impression/Plan: Impression 72 year old woman * PATRICIA community acquired pneumonia Plan -f/u requested studies -cont abx -TRC/nebs DVT prophylaxis at all times
[2017-09-30 14:13] VITALS: BP 130/75
--- NOTE | 2017-09-30 15:04 | Patient Discharge Instructions ---
Discharge Instructions General Discharge Information You were seen/treated for: Community acquired pneumonia Special Instructions: Please follow up with your PCP in a week Please follow up with your Guest Relations Coordinator in a week Diet Continue normal diet: Yes Activity Full Activity/No Limits: Yes Acute Coronary Syndrome Inclusion Criteria At DC or during hospital stay patient has or had the following: ACS DIAGNOSIS No Discharge Core Measures Meds if any: Prescribed or Continued at Discharge Meds if any: NOT Prescribed or Continued at Discharge Congestive Heart Failure Inclusion Criteria At DC or during hospital stay patient has or had the following: CHF DIAGNOSIS No Discharge Core Measures Meds if any: Prescribed or Continued at Discharge Meds if any: NOT Prescribed or Continued at Discharge Cerebrovascular accident Inclusion Criteria At DC or during hospital stay patient has or had the following: CVA/TIA Diagnosis No Discharge Core Measures Meds if any: Prescribed or Continued at Discharge Meds if any: NOT Prescribed or Continued at Discharge Venous thromboembolism Inclusion Criteria VTE Diagnosis No VTE Type NONE VTE Confirmed by (Test) NONE Discharge Core Measures - Per Current guidelines, there needs to be overlap - treatment for the first 5 days of Warfarin therapy. - If discharged on Warfarin prior to 5 days of - overlap therapy, the patient will need to be - assessed for post discharge needs including - *Post discharge parental anticoagulation - *Warfarin and/or parental anticoagulation education - *Follow up date to check INR post discharge At least 5 days overlap therapy as Inpatient No Meds if any: Prescribed or Continued at Discharge Note: Overlap Therapy is Warfarin and Anticoagulant Meds if any: NOT Prescribed or Continued at Discharge
[2017-09-30 21:29] VITALS: BP 120/70
[2017-10-01 06:29] VITALS: BP 90/62
--- NOTE | 2017-10-01 07:27 | PN- Housestaff ---
Minnie TURCIOS,[place] 10/01/17 0727: Subjective Follow-up For: Community acquired Pneumonia Subjective: seen and examined She feels much better. No overnight events. Mild blurry vision attirbuting to low blood pressure, otherwise no pain. Improved breathing. Review of Systems Constitutional: Reports: see HPI. Objective Last 24 Hrs of Vital Signs/I&O Vital Signs Date Time Temp Pulse Resp B/P B/P Pulse O2 O2 Flow FiO2 Mean Ox Delivery Rate 10/01 06 98.2 72 20 90/62 94 Room Air 10/01 0000 Room Air 09/30 2128 98.8 82 18 120/70 95 09/30 1413 98.9 78 18 130/75 95 09/30 1122 95 Room Air 09/30 0800 94 Intake & Output 10/01 0800 10/01 0000 09/30 1600 Intake Total 360 120 Output Total Balance 360 120 Intake, Oral 360 120 Physical Exam General Appearance: Alert, Oriented X3, Cooperative, No Acute Distress Skin: No Rashes, No Breakdown Skin Temp/Moisture Exam: Warm/Dry HEENT: Atraumatic, PERRLA, EOMI Neck: Supple, No JVD Cardiovascular: Normal S1, Normal S2, No Murmurs Lungs: Clear to Auscultation, Normal Air Movement Abdomen: Normal Bowel Sounds, Soft, No Tenderness Neurological: Normal Gait, Normal Speech, Strength at 5/5 X4 Ext Extremities: No Clubbing, No Cyanosis, No Edema Current Medications: Current Medications Sig/Dwain Start time Last Medication Dose Route Stop Time Status Admin Acetaminophen 650 MG Q6P PRN 09/28 0300 AC 09/28 PO 1646 Albuterol Sulfate 3 ML Q4P PRN 09/28 2300 AC 09/30 INH 1122 Ceftriaxone Sodium 1,000 MG DAILY 09/28 1000 DC 09/29 IV 1007 Cefuroxime Sodium 250 MG Q12 09/30 1503 AC 09/30 PO 2136 Cephalexin 250 MG Q6H 09/30 1500 DC PO Doxycycline Hyclate 100 MG DAILY 09/30 1338 AC 09/30 PO 1702 Doxycycline Hyclate 100 MG DAILY 09/28 1000 DC 09/29 Sodium Chloride 100 ML IV 1009 Enoxaparin Sodium 40 MG DAILY 09/28 1000 AC 09/30 SC 0936 Guaifenesin 600 MG Q12 09/28 1000 AC 03/20 PO 2121 Guaifenesin/ 10 ML Q6P PRN 09/28 0500 AC Dextromethorphan PO Ibuprofen 600 MG Q6P PRN 09/28 0300 AC 10/01 PO 0140 Ondansetron HCl 4 MG Q6P PRN 09/28 0300 AC 09/30 IV 0021 Assessment/Plan Assessment: 72 yo F with h/o 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 Tmax 100.4 at home. She reports feeling weak, fatigued and ' queasy' to her stomach in the past 1 week at admission. Admitted to general medicine floor Problem list 1. Community acquired pneumonia 2. History of RML/ [place] [facility] syndrome 3. Recurrent pneumonia Plan Community acquired pneumonia Imaging demonstrated dense infiltrated PATRICIA and increasing reticular nodular change in the RUL along with relevant clinical findings of pleuritic chest pain, dry cough. Possibly pneumonia vs cryptogenic pneumonia. She was intially started on IV ceftriaxone and doxycycline (allergic to azithro) transitioned to oral ceftin and doxycycline. Trying to obtain sputum of AFB. Immunoglobulins are within normal limits ruling out immunodeficiency. ESR and CRP elevated indicating inflammatory process. Pulm consult with . Likely stable for discharge. DVT prophylaxis SC lovenox Code status full code Problem List: 1. Right middle lobe pneumonia 2. Left upper lobe pneumonia 3. Chest discomfort Pain Ratin Pain Location: chest pain Pain Goal: Pain 4 or less Pain Plan: tylenol prn Tomorrow's Labs & Rationales: none Misty Rust MD 10/01/17 1215: Attending MD Review Statement Attending Statement Attending MD Statement: examined this patient, discuss w/resident/PA/CURING OVEN TENDER, agreed w/resident/PA/CURING OVEN TENDER, reviewed EMR data (avail), discussed with nursing, discussed with case mgmt, reviewed images, amended to note Attending Assessment/Plan: Patient seen and examined, doing overall much better. Breathing has improved. She is not coughing that bad and her pain is also improved. She has been switched to oral antibiotics. She is on room air. Emulating well without any problems. Seen by digital designer. Medically stable for discharge home today on oral antibiotics and further follow-up with Dr. Contreras as an outpatient. Patient should also follow-up with her primary care doctor as an outpatient.
[2017-10-01] MEDS ORDERED: CEFUROXIME250 M1 PO (08:32)
[2017-10-01] MEDS ORDERED: DOXYCYCLINE HY100 M2 PO ×2 (08:32→09:48)
--- NOTE | 2017-10-01 12:22 | PN- Pulmonary ---
Subjective HPI/Critical Care Issues: pt seen and examined feeling well getting dc Objective Current Medications: Current Medications Sig/Dwain Start time Last Medication Dose Route Stop Time Status Admin Acetaminophen 650 MG Q6P PRN 09/28 0300 DCD 09/28 PO 1646 Albuterol Sulfate 3 ML Q4P PRN 09/28 2300 DCD 09/30 INH 1122 Ceftriaxone Sodium 1,000 MG DAILY 09/28 1000 DC 09/29 IV 1007 Cefuroxime Sodium 250 MG Q12 09/30 1503 DCD 10/01 PO 1018 Cephalexin 250 MG Q6H 09/30 1500 DC PO Doxycycline Hyclate 100 MG DAILY 09/30 1338 DCD 10/01 PO 1018 Doxycycline Hyclate 100 MG DAILY 09/28 1000 DC 09/29 Sodium Chloride 100 ML IV 1009 Enoxaparin Sodium 40 MG DAILY 09/28 1000 DCD 09/30 SC 0936 Guaifenesin 600 MG Q12 09/28 1000 DCD 09/29 PO 2121 Guaifenesin/ 10 ML Q6P PRN 09/28 0500 DCD Dextromethorphan PO Ibuprofen 600 MG .STK-MED ONE 10/01 0139 DC PO 10/01 0140 Ibuprofen 600 MG Q6P PRN 09/28 0300 DCD 10/01 PO 0140 Ondansetron HCl 4 MG Q6P PRN 09/28 0300 DCD 09/30 IV 0021 Patient Medication 1 ED ONE ONE 10/01 1145 DC Teaching ED 10/01 1146 Vital Signs & I&O Last 24 Hrs of Vitals and I&O: Vital Signs Date Time Temp Pulse Resp B/P B/P Pulse O2 O2 Flow FiO2 Mean Ox Delivery Rate 10/01 1102 96 Room Air 10/01 0629 98.2 72 20 90/62 94 Room Air 10/01 0000 Room Air 09/30 2128 98.8 82 18 120/70 95 09/30 1413 98.9 78 18 130/75 95 Intake & Output 10/01 1600 10/01 0800 10/01 0000 Intake Total 360 120 Output Total Balance 360 120 Intake, Oral 360 120 Exam Other Physical Findings: gen awake alert heent ncat cvs s1, s2 lungs overall clear abd soft, bs+ ext without edema Impression/Plan Impression/Plan Impression/Plan: Impression 72 year old woman * PATRICIA community acquired pneumonia Plan -f/u requested studies -cont abx -TRC/kris kelly dc
--- NOTE | 2017-10-01 12:47 | Discharge Summary ---
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 Tmax 100.4 at home. She reports feeling weak, fatigued and ' queasy' to her stomach in the past 1 week at admission. Admitted to general medicine floor Problem list 1. Community acquired pneumonia 2. History of RML/ [place] syndrome 3. Recurrent pneumonia Plan Community acquired pneumonia Imaging demonstrated dense infiltrated PATRICIA and increasing reticular nodular change in the RUL along with relevant clinical findings of pleuritic chest pain, dry cough. Possibly pneumonia vs cryptogenic pneumonia. She was intially started on IV ceftriaxone and doxycycline (allergic to azithro) transitioned to oral ceftin and doxycycline. Trying to obtain sputum of AFB. Immunoglobulins are within normal limits ruling out immunodeficiency. ESR and CRP elevated indicating underlying inflammatory process. Pulm consult with . DVT prophylaxis SC lovenox Code status full code Complications: NONE Allergies: Coded Allergies: Penicillins (RASH 10/21/16) Sulfa (Sulfonamide Antibiotics) (RASH 10/21/16) azithromycin (SEVERE GI PAIN, DIARRHEA 10/21/16) Significant Procedures: Chest CT on 09/27/17 TECHNIQUE: Multidetector volumetric CT imaging of the chest was done. Axial MIP volume rendering provided. Sagittal and coronal reformatted images were obtained. Noncontrast study limits this exam. Centrally there is some mildly increasing adenopathy. The hilar regions are comparable to previous. Imaging the lung [place]. Right lung; Increasing reticular nodular change in the right upper lung anterior. This be consistent with acute infiltrate superimposed on chronic change. There is no significant effusion. Left lung Dense left upper lung opacity anterior consistent with a cyst small area of dense infiltrate. Stable appearing nodularity in the lingula. No effusion. Is a noncontrast study. Once again low-density lesions are seen in the liver. No definitive change from previous but still etiology is not determined here. IMPRESSION: Dense infiltrate in the left upper lung anterior as described and some increasing reticular nodular change in the right upper lung anterior. These are most consistent with areas of infiltrate. I would recommend a follow-up study here after treatment 6 weeks to 3 months to assess for resolution as underlying malignancy cannot be excluded such as bronchoalveolar tumor There is some increasing central adenopathy which may be reactive but again short-term follow-up is recommended. Pertinent Lab Results: as above Disposition Summary Disposition Principal Diagnosis: Community acquired pneumonia Additional Diagnosis: RML syndrome/[place] syndrome Discharge Disposition: home or self care Discharge Instructions General Discharge Information Code Status: Full Code Patient's Diet: regular diet Patient's Activity: as tolerated Follow-Up Instructions/Appts: Please follow up with your PCP in a week Please follow up with your Rf Engineer in a week Medications at Discharge Discharge Medications: Stop taking the following medications: Moxifloxacin HCl (Avelox) 400 MG TABLET ORAL DAILY Qty = 5 Continue taking these medications: Ascorbate Calcium (Vitamin C) (Unknown Strength) TABLET Unknown Dose ORAL DAILY Comments: NOT GIVEN IN THE HOSPITAL Multivitamin (Daily Value) 1 EACH TABLET 1 Tablet ORAL DAILY Comments: NOT GIVEN IN THE HOSPITAL Albuterol Sulfate (Albuterol Sulfate) 2.5 MG/3 ML (0.083 %) VIAL.NEB 1 Vial Inhale Solution Every Morning Comments: Last Taken: 09/30/17 Time: 1115 AM Start taking the following new medications: Doxycycline Hyclate (Doxycycline Hyclate) 100 MG CAPSULE 100 Milligram ORAL TWICE DAILY Qty = 7 No Refills Comments: Last Taken: 10/01/17 Time: 1015 AM Cefuroxime Axetil (Cefuroxime) 250 MG TABLET 250 Milligram ORAL EVERY 12 HOURS Qty = 7 No Refills Comments: Last Taken: 10/01/17 Time: 1015 AM Copies To: Viktor TURCIOS,Myke Contreras MD,Jimbo Attending Review Statement Documenting Attending: Barrera TURCIOS,Misty
== END 2017-10-01 11:56 | DRG 195 ==
LOC: ERH 23:06 → ERHI 09-28 00:58 → 2NA 09-28 00:58 → ENRESERV 09-28 02:37 → 2NA 09-28 03:20 → ENPENDDIS 10-01 11:22 → 2NA 10-01 11:56
PROVIDERS: Internal Medicine; Physician Assistant Medical
DX: J18.9 Pneumonia, unspecified organism (principal); A31.0 Pulmonary mycobacterial infection
CPT/HCPCS: 2NASP; 86480; 36415; 36592; 81003; 82436; 82784; 87040; 87070; 87449; 87450; 87804; 87804-59; 93005; 93010; 96365; J0696; J1650; J2405

== ENCOUNTER 2017-10-16 10:04 | Inpatient (IN) | payer OTHER ==
[~2017-10-16] VITALS: Ht 157.5 cm; Wt 59.9 kg
[~2017-10-16 10:04] MED LIST changes: +DOXYCYCLINE HY100 M2 PO
--- NOTE | 2017-10-16 11:07 | RADIOLOGY REPORT ---
EXAMINATION: XR CHEST CLINICAL INFORMATION: Pneumonia, cough COMPARISON: 09/27/[address] scan TECHNIQUE: 2 views of the chest were obtained. FINDINGS: The lungs are slightly hyperexpanded, which could represent some degree of air trapping. There is an opacity seen in the retrosternal clear space, seen on the lateral view. This can correspond with the left upper lobe opacity seen on the comparison CT scan. Considering the differences in technique, it is fairly similar to the comparison CT scan. There is a second area of opacity in the lateral left upper lung, better seen on the PA view which seems to be a new finding. No pleural effusion. No pneumothorax. Mild bilateral apical pleural thickening noted. Degenerative and kyphotic changes of the thoracic spine are present. IMPRESSION: Persistent left upper lobe pulmonary opacity with suggestion of a new area of left upper lung opacity. Consider further chest CT scan evaluation. The office of the ordering physician will be notified directly.
--- NOTE | 2017-10-16 11:34 | ED INFLUENZA/URI COMPLAINT ---
History of Present Illness General Chief Complaint: Upper Respiratory Sx/Fever Stated Complaint: COUGH AND CONGESTION Source: patient, family, old records Exam Limitations: no limitations Vital Signs & Intake/Output Vital Signs & Intake/Output Vital Signs Date Time Temp Pulse Resp B/P B/P Pulse O2 O2 Flow FiO2 Mean Ox Delivery Rate 10/16 1007 96.0 80 16 166/95 98 Room Air Allergies Coded Allergies: Penicillins (RASH 10/21/16) Sulfa (Sulfonamide Antibiotics) (RASH 10/21/16) azithromycin (SEVERE GI PAIN, DIARRHEA 10/21/16) Reconcile Medications Albuterol Sulfate 2.5 MG/3 ML (0.083 %) VIAL.NEB 1 Vial INH/NURYS QAM RIGHT MIDDLE LOBE SYNDROME (Reported) Ascorbate Calcium (Vitamin C) (Unknown Strength) TABLET (Unknown Dose) PO DAILY SUPPLEMENT (Reported) Multivitamin (Daily Value) 1 EACH TABLET 1 TAB PO DAILY VITAMIN SUPPORT ( Reported) Triage Note: PT TO ED FOR NON PRODUCTIVE COUGH/CHEST CONGESTION. WAS DISCHARGED ON 10/01 FROM [place] FOR L SIDED PNEUMONIA. REPORTS R SIDED PAIN IN CHEST NOW "FEELS LIKE PNEUMONIA AGAIN" DENIES FEVERS. USED ALBUTEROL NEB AT 0830 WITH MINIMAL RELIEF. PULMONOLIGIST IS MD [place]. Triage Nurses Notes Reviewed? yes Onset: Gradual Duration: day(s): Timing: recent history Severity: moderate HPI: 72yo female with hx of PNA presents to ED complaining of dry cough and worsening dyspnea x 3 days. Patient was admitted 09/27 - 10/01 for PNA, she was feeling better at time of discharge, discharged with continued oral antibiotics. Patient states that she is having worsening symptoms of pneumonia for the past 3 days. Patient also reporting right sided chest pain which she has had during previous episodes of pneumonia. Chest pain is described as worse with exertion and deep inspiration. Patient reports that currently at rest she does not have significant chest pain. Patient states that when she walked from the waiting room to x-ray she experienced severe dyspnea and had to sit down and rest. Patient also reports intermittent nausea. The patient denies fevers, chills, night sweats, weight loss, vomiting, abdominal pain. (Naila COVARRUBIAS,April Schuster) Past History Travel History Traveled to [place] past 21 day No Medical History Any Pertinent Medical History? 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 No (April Barrios) Review of Systems Review of Systems Constitutional: Reports: no symptoms. EENTM: Reports: no symptoms. Respiratory: Reports: see HPI. Cardiovascular: Reports: see HPI. GI: Reports: see HPI. Genitourinary: Reports: no symptoms. Musculoskeletal: Reports: no symptoms. Skin: Reports: no symptoms. Neurological/Psychological: Reports: no symptoms. Hematologic/Endocrine: Reports: no symptoms. Immunologic/Allergic: Reports: no symptoms. All Other Systems: Reviewed and Negative (April Barrios) Physical Exam Physical Exam General Appearance: well developed/nourished, no apparent distress, alert, awake Head: atraumatic, normal appearance Eyes: Bilateral: normal appearance. Ears, Nose, Throat: moist mucous membrane, hearing grossly normal, pharynx normal Neck: normal inspection, supple, full range of motion Respiratory: no respiratory distress, mild wheezing bilateral lower lobes Cardiovascular: regular rate/rhythm Gastrointestinal: normal bowel sounds, soft, non-tender, no organomegaly Back: normal inspection, normal range of motion Extremities: normal inspection, normal range of motion Neurologic/Psych: awake, alert, oriented x 3 Skin: intact, normal color, warm/dry Core Measures Sepsis Present: No Sepsis Focused Exam Completed? No (April Barrios) Progress Differential Diagnosis: influenza, pneumonia, ACS, PE, COPD, CHF, UNSTABLE ANGINA Diagnostic Imaging: Viewed by Me: Radiology Read. Discussed w/RAD: Radiology Read. 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 FINDINGS: The lungs are slightly hyperexpanded, which could represent some degree of air trapping. There is an opacity seen in the retrosternal clear space, seen on the lateral view. This can correspond with the left upper lobe opacity seen on the comparison CT scan. Considering the differences in technique, it is fairly similar to the comparison CT scan. There is a second area of opacity in the lateral left upper lung, better seen on the PA view which seems to be a new finding. No pleural effusion. No pneumothorax. Mild bilateral apical pleural thickening noted. Degenerative and kyphotic changes of the thoracic spine are present. IMPRESSION: Persistent left upper lobe pulmonary opacity with suggestion of a new area of left upper lung opacity. Consider further chest CT scan evaluation. The office of the ordering physician will be notified directly. DICTATED BY: Manav Cain MD DATE/TIME DICTATED:1058 STAFF ASSISTANT:OLE DATE/TIME TRANSCRIBED:10/16/171058 CONFIDENTIAL, DO NOT COPY WITHOUT APPROPRIATE AUTHORIZATION. <Electronically signed in Other Vendor System> SIGNED BY: Manav Cain MD 10/16/17 1107 Initial ED EKG: SINUS RHYTHM @70BPM (Naila COVARRUBIAS,April Schuster) Plan of Care: Orders Procedure Date/time Status RAPID VIRAL INFLUENZA A 10/16 1322 Active Admit to inpatient 10/16 1317 Active Patient Data 10/16 1309 Active BLOOD CULTURE 10/16 1117 Active TROPONIN LEVEL 10/16 1107 Complete COMPREHENSIVE METABOLIC PANEL 10/16 1107 Complete CBC WITHOUT DIFFERENTIAL 10/16 1107 Complete EKG 10/16 1107 Active Current Medications Sig/Dwain Start time Last Medication Dose Stop Time Status Admin Doxycycline Hyclate 100 MG ONCE ONE 10/16 1300 AC (Vibramycin) 10/16 1405 Sodium Chloride 100 ML (Normal Saline 0.9%) Laboratory Tests 10/16/17 1139: Anion Gap 13, Estimated GFR > 60, BUN/Creatinine Ratio 36.7 H, Glucose 91, Calcium 10.4 H, Total Bilirubin 0.7, AST 26, ALT 38, Alkaline Phosphatase 151 H, Troponin I < 0.01, Total Protein 8.1, Albumin 4.7, Globulin 3.4, Albumin/ Globulin Ratio 1.4, CBC w Diff NO MAN DIFF REQ, RBC 4.63, MCV 90.9, MCH 30.4, MCHC 33.4, RDW 14.5, MPV 7.7, Gran % 68.2, Lymphocytes % 23.5, Monocytes % 6.2, Eosinophils % 1.2, Basophils % 0.9, Absolute Granulocytes 5.7, Absolute Lymphocytes 2.0, Absolute Monocytes 0.5, Absolute Eosinophils 0.1, Absolute Basophils 0.1 Microbiology 10/16 1322 NASOPHARYN: Influenza Virus A & B Rapid Smear - ORD 10/16 1155 BLOOD: Blood Culture - RECD 10/16 1139 BLOOD: Blood Culture - RECD Chest x-ray shows worsening left upper lobe pneumonia compared to previous imaging. Spoke with Dr. Adamson regarding this patient, he will consult a formal pulmonology consult is requested. Dr. Iverson present to seen and evaluated the patient. Patient had significant dyspnea with ambulation here in the emergency department. She has worsening pneumonia despite use of oral antibiotics following her previous discharge. This patient requires IV antibiotics for pneumonia, respiratory therapy treatments, possible supplemental oxygen, pulmonology consult, possible ID consult. This patient will not likely fully recuperated in less than 48 hours, case management recommended full admission. Spoke with hospitalist Dr. Hess regarding admission. (Naila COVARRUBIAS,April Schuster) (Zayra TURCIOS,Christopher Perkins) Departure Departure Disposition: STILL A PATIENT Condition: Stable Clinical Impression Primary Impression: Pneumonia Qualifiers: Pneumonia type: due to unspecified organism Laterality: left Lung location: upper lobe of lung Qualified Code: J18.1 - Lobar pneumonia, unspecified organism Secondary Impressions: Dyspnea Qualifiers: Dyspnea type: dyspnea on exertion Qualified Code: R06.09 - Other forms of dyspnea Referrals: Viktor TURCIOS,Myke Cedeno (PCP/Family) Departure Forms: Customer Survey General Discharge Information Admission Note Spoke With: Jimena TURCIOS,Karis Documentation of Exam: Documentation of any treatments & extenuating circumstances including Concerns Regarding Discharge (functional status, medication knowledge or non-compliance, living conditions, etc.) that warrant an admission rather than observation: [ Worsening left upper lobe pneumonia requiring IV antibiotics, pulmonology consult, respiratory therapy treatments, possible ID consult given unresolved pneumonia, premature discharge medically unsafe, unlikely the patient will recuperate in less than 48 hours.] (Naila COVARRUBIAS,April Schuster)
[2017-10-16 11:49] LABS: ABSOLUTE BASOPHIL COUNT 0.1 /CUMM (0.0-0.2); ABSOLUTE EOSINOPHIL COUNT 0.1 /CUMM (0.0-0.7); ABSOLUTE GRANULOCYTE CT 5.7 /CUMM (1.4-6.5); ABSOLUTE MONOCYTE COUNT 0.5 /CUMM (0.10-0.60); BASOPHIL % 0.9 % (0.0-2.0); EOSINOPHIL % 1.2 % (0-5); GRANULOCYTE % 68.2 % (42.2-75.2); HEMATOCRIT 42.1 % (37-47); MEAN CORPUSCULAR HGB 30.4 PG (27.0-31.0); MEAN CORPUSCULAR HGB CONC 33.4 G/DL (33.0-37.0); MEAN CORPUSCULAR VOLUME 90.9 FL (81.0-99.0); MEAN PLATELET VOLUME 7.7 FL (7.4-10.4); PLATELET COUNT 583 /CUMM (130-400); RBC DISTRIBUTION WIDTH 14.5 % (11.5-14.5); RED BLOOD CELL CT 4.63 /CUMM (4.20-5.40); WHITE BLOOD CELL COUNT 8.4 /CUMM (4.8-10.8)
--- NOTE | 2017-10-16 13:11 | History & Physical ---
Taylor Rodríguez MDapna 10/16/17 1310: General Information and HPI MD Statement: I have seen and personally examined SILVIA WORKMAN and documented this H&P. The patient is a 72 year old F who presented with a patient stated chief complaint of [sob]. 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 Patient recently got discharged from [facility] in 09/30/2017 treated for community-acquired pneumonia with ceftriaxone and doxycycline [ patient is allergic to azithromycin]. Patient says she didn't get better continued having nonproductive cough. The cough is not associated with any sputum production, fever, chills, runny nose. She endorses night sweats last week. Last night patient felt nauseous and had increased shortness of breath. Patient tried using her nebulizer twice yesterday with no relief. She also felt right chest discomfort going to the right shoulder blade. Patient had severe abdominal pain associated with 5 normal bowel movements this morning, Not associated with any blood. Patient also has history of chronic back pain on and off. Patient denies chest pain, headache, myalgia, fever, fall, weakness, numbness, tingling sensation. Patient is seeing Dr. Coreas for osteoarthritis who started her on tapering dose of prednisone. Patient stopped taking prednisone as it didn't relieve her symptoms. Patient denies loss of weight/ loss of appetite. Dr. Contreras is her cost recorder with whom she has an appointment is 10/21/2017. 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 MOTHER (afib). Relation not specified for: *No pertinent family history Psychosocial History Who Do You Live With? spouse Services at Home: None Primary Language: Bolivian Smoking Status: Never Smoked ETOH Use: occasional use Functional Ability ADLs Independent: dressing, eating, toileting, bathing. Ambulation: independent IADLs Independent: shopping, housework, finances, food prep, telephone, transportation , medication admin. Review of Systems Review of Systems Constitutional: Reports: weakness. Cardiovascular: Reports: no symptoms. Respiratory: Reports: cough, short of breath. GI: Reports: no symptoms. Genitourinary: Reports: no symptoms. Musculoskeletal: Reports: joint pain. Exam & Diagnostic Data Last 24 Hrs of Vital Signs/I&O Vital Signs Date Time Temp Pulse Resp B/P B/P Pulse O2 O2 Flow FiO2 Mean Ox Delivery Rate 10/16 1007 96.0 80 16 166/95 98 Room Air Intake & Output 10/16 1600 10/16 0800 10/16 0000 Intake Total 0 Output Total Balance 0 Intake, Oral 0 Patient 144 lb Weight Physical Exam General Appearance Alert, Oriented X3, Cooperative, No Acute Distress Skin No Rashes, No Breakdown HEENT Atraumatic, PERRLA, EOMI, Mucous Membr. moist/pink Cardiovascular Regular Rate, Normal S1, Normal S2, No Murmurs Lungs Normal Air Movement Abdomen Soft, No Tenderness, No Hepatospenomegaly, No Masses Neurological Normal Speech, Strength at 5/5 X4 Ext, Normal Tone, Sensation Intact, Cranial Nerves 3-12 NL Extremities No Cyanosis, No Edema, Normal Pulses Last 24 Hrs of Labs/Arthur: Laboratory Tests 10/16/17 1139: Anion Gap 13, Estimated GFR > 60, BUN/Creatinine Ratio 36.7 H, Glucose 91, Calcium 10.4 H, Total Bilirubin 0.7, AST 26, ALT 38, Alkaline Phosphatase 151 H, Troponin I < 0.01, Total Protein 8.1, Albumin 4.7, Globulin 3.4, Albumin/ Globulin Ratio 1.4, CBC w Diff NO MAN DIFF REQ, RBC 4.63, MCV 90.9, MCH 30.4, MCHC 33.4, RDW 14.5, MPV 7.7, Gran % 68.2, Lymphocytes % 23.5, Monocytes % 6.2, Eosinophils % 1.2, Basophils % 0.9, Absolute Granulocytes 5.7, Absolute Lymphocytes 2.0, Absolute Monocytes 0.5, Absolute Eosinophils 0.1, Absolute Basophils 0.1 Microbiology 10/16 1523 STOOL: Clostridium difficile Toxin A & B - ORD 10/16 1523 STOOL: Stool Culture - ORD 10/16 1436 NASOPHARYN: Influenza Virus A & B Rapid Smear - COMP 10/16 1155 BLOOD: Blood Culture - RECD 10/16 1139 BLOOD: Blood Culture - RECD Diagnostic Data Other Results Pulmonary function test the FVC, FEV1, [id number] and FEV1/FVC ratio is normal. There is significant improvement in [id number] following bronchodilators. IMPRESSION: Normal spirometry with evidence of increased resting bronchomotor tone. 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 Admission vitals Temperature 90.6, pulse rate 80, respiratory rate 16, blood pressure 166/95, saturating 98 at room air admission labs WBC 8.4, hemoglobin 14.1, platelet count 583,sodium 144, potassium 4.4, BUN/ creatinine 22, creatinine 0.6, BUN 22, creatinine 0.6, calcium 10.4 [corrected calcium-], alkaline phosphatase 151 Imaging Chest x-ray Persistent left upper lobe pulmonary opacity with suggestion of a new area of left upper lung opacity. Consider further chest CT scan evaluation. CT chest 2012 Impression: Persistent peripheral right middle lobe infiltrate. Interval resolution of the right upper lobe infiltrate. Consider radiographic followup. Left upper lobe and lingular nodules are stable. Given the size of the 8mm nodule in the lingula Depending on patient risk factors, an additional follow up CT scan recommended in 6 to 12 months New 2 to 3 mm nodule is seen in the right upper lobe along the major fissure. Right middle lobe granuloma CT chest 2015March 13. The patchy opacities in the right lung are suspicious for a multifocal infectious process. Continued radiographic follow-up is suggested in 4-6 weeks' time. 2. Stable left lingular pulmonary nodule dating to 2012, highly reassuring. 3. Numerous subcentimeter probable liver cysts. CT chest June 2016 No significant change in gexf-cs-wzu-type nodular opacities in the anteromedial aspect of the right upper lobe.Multiple scattered calcified granulomas and scattered tiny noncalcified nodules, unchanged, consistent with granulomatous lung disease. CT chest June 2017 1. Chronic cluster of xbwe-gg-fgs-in-bud nodules within the anterior segment of the right upper lobe, consistent with infectious bronchiolitis. Within this region, there are some new and/or larger pulmonary and pleural-based nodules. The possibility of infection with mycobacterium avium complex should be considered. CT chest September 2017 Dense infiltrate in the left upper lung anterior as described and some increasing reticular nodular change in the right upper lung anterior. These are most consistent with areas of infiltrate. I would recommend a follow-up study here after treatment 6 weeks to 3 months to assess for resolution as underlying malignancy cannot be excluded such as bronchoalveolar tumor ED treatment Doxycycline, ondansetron Assessment and plan 1. Persistent left upper lobe opacity. 2. Multiple episodes of pneumonia treated in the past. [tuberculosis was ruled out, immunodeficiency workup negative] * Persistent left upper lobe opacity-patient's left upper lobe opacity in x-ray can be a slow resolution of previous community-acquired pneumonia or persistent opacity inadequately treated. Patient had CAT scan last admission in September, radiologist suggested to do a repeat scan in 8 weeks to assess for any underlying malignancy though the patient doesn't have any symptoms of loss of weight, appetite, weakness. Patient is a nonsmoker. We can do a repeat CAT scan of her chest to look for persistence/resolution of left upper lobe opacity. We will get pulmonology involved. [Pulmonology consult placed]. There was a suspicion of [place] syndrome by the patient but the patient has opacity in the right upper lobe and the condition is more commonly seen right middle lobe. We will follow-up antibiotics. * TRC nebulization * code-full code * Diet-regular diet * DVT prophylaxis-Lovenox As Ranked By This Provider Problem List: 1. Dyspnea Qualifiers Dyspnea type: dyspnea on exertion Qualified Code: R06.09 - Other forms of dyspnea Core Measures/Misc (03/29) Acute Coronary Syndrome ACS Diagnosis: No Congestive Heart Failure Congestive Heart Failure Diagnosis No Cerebrovascular Accident CVA/TIA Diagnosis: No VTE (View Protocol) VTE Risk Factors Age>40 No Mechanical VTE Prophylaxis d/t Other No VTE Pharm Prophylaxis d/t Other Sepsis (View protocol) Sepsis Present: No Misty Rust MD 10/16/17 1505: Attending Review Statement Attending Statement Attending MD Statement: examined this patient, discuss w/resident/PA/[employer] REPAIRER, agreed w/resident/PA/[employer] REPAIRER, discussed with family, reviewed EMR data (avail), discussed with nursing, discussed with case mgmt, reviewed images, amended to note Attending Assessment/Plan: 72-year-old female with past medical history significant for multiple episodes of pneumonia, questionable [place] syndrome, 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 Patient was discharged on oral antibiotics to complete the course. She claims that she initially felt better but not back to her baseline. She continued to have this dry cough. All the last couple of days just getting more out of breath. Last night when she went to the bathroom so she was very out of breath. She denies any sputum production. She denies any fevers or chills. She has been using her nebulizer which she used twice last night but not much effect. She has this consistent right-sided back pain. Because of this worsening shortness of breath and dyspnea on exertion she presented to the emergency room. Her chest x-ray obtained shows consistent left-sided opacity which was present on the previous admission. Patient was afebrile with white count normal. Patient denies any orthopnea PND. Patient denies any weight loss. She does complain of decreased appetite, did have night sweats once a while. Previously her workup showed negative Quantiferone. Patient also mentioned some diarrhae last night. Vital Signs Date Time Temp Pulse Resp B/P B/P Pulse O2 O2 Flow FiO2 Mean Ox Delivery Rate 10/16 1439 98.0 71 20 136/76 97 Room Air 10/16 1339 144/80 10/16 1330 98.3 76 18 97 Room Air 10/16 1007 96.0 80 16 166/95 98 Room Air on exam; aox3, nad. cv; s1,s2, rrr resp; clear abd; soft, nt, bs+ ext; no edema Laboratory Tests 10/16 1139 Chemistry Sodium (137 - 145 mmol/L) 143 Potassium (3.5 - 5.1 mmol/L) 4.4 Chloride (98 - 107 mmol/L) 101 Carbon Dioxide (22 - 30 mmol/L) 29 Anion Gap (5 - 16) 13 BUN (7 - 17 mg/dL) 22 H Creatinine (0.5 - 1.0 mg/dL) 0.6 Estimated GFR (>60 ml/min) > 60 BUN/Creatinine Ratio (7 - 25 %) 36.7 H Glucose (65 - 99 mg/dL) 91 Calcium (8.4 - 10.2 mg/dL) 10.4 H Total Bilirubin (0.2 - 1.3 mg/dL) 0.7 AST (14 - 36 U/L) 26 ALT (9 - 52 U/L) 38 Alkaline Phosphatase (<127 U/L) 151 H Troponin I (< 0.11 ng/ml) < 0.01 Total Protein (6.3 - 8.2 g/dL) 8.1 Albumin (3.5 - 5.0 g/dL) 4.7 Globulin (1.9 - 4.2 gm/dL) 3.4 Albumin/Globulin Ratio (1.1 - 2.2 %) 1.4 Hematology CBC w Diff NO MAN DIFF REQ WBC (4.8 - 10.8 /CUMM) 8.4 RBC (4.20 - 5.40 /CUMM) 4.63 Hgb (12.0 - 16.0 G/DL) 14.1 Hct (37 - 47 %) 42.1 MCV (81.0 - 99.0 FL) 90.9 MCH (27.0 - 31.0 PG) 30.4 MCHC (33.0 - 37.0 G/DL) 33.4 RDW (11.5 - 14.5 %) 14.5 Plt Count (130 - 400 /CUMM) 583 H MPV (7.4 - 10.4 FL) 7.7 Gran % (42.2 - 75.2 %) 68.2 Lymphocytes % (20.5 - 51.1 %) 23.5 Monocytes % (1.7 - 9.3 %) 6.2 Eosinophils % (0 - 5 %) 1.2 Basophils % (0.0 - 2.0 %) 0.9 Absolute Granulocytes (1.4 - 6.5 /CUMM) 5.7 Absolute Lymphocytes (1.2 - 3.4 /CUMM) 2.0 Absolute Monocytes (0.10 - 0.60 /CUMM) 0.5 Absolute Eosinophils (0.0 - 0.7 /CUMM) 0.1 Absolute Basophils (0.0 - 0.2 /CUMM) 0.1 EKG shows sinus rhythm with no acute ST-T wave changes. CXR: Persistent left upper lobe pulmonary opacity with suggestion of a new area of left upper lung opacity. Consider further chest CT scan evaluation. 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 Patient was discharged on oral antibiotics to complete the course. Now presenting due to not resolving and now worsening off her shortness of breath and dyspnea on exertion. Patient admitted to medicine floor. Chest x-ray consistent with the previous infiltrate. Please obtain pulmonology consult and discuss with cost recorder if need to repeat the CT chest. Patient does not show any evidence of fluid overload on clinical exam or chest x-ray. She did receive antibiotics in the emergency room but she is afebrile, white count normal and does not have any sputum production. Will watch her off of antibiotics. We'll keep her on TRC nebs, oxygen as needed. As mentioned previous workup had showed negative Quantiferone. Low IgG and slightly high IgE levels. We'll discuss with cost recorder about any further workup. Check stool for cdiff and other studies if persistent diarrhea. Please confirm and continue the home medications. Pharmacologic DVT prophylaxis. Meagan TURCIOS,[facility] 10/16/17 1517: General Information and HPI Allergies/Medications Home Med list Albuterol Sulfate 2.5 MG/3 ML (0.083 %) VIAL.NEB 1 Vial INH/NURYS QAM RIGHT MIDDLE LOBE SYNDROME (Reported) Ascorbate Calcium (Vitamin C) (Unknown Strength) TABLET (Unknown Dose) PO DAILY SUPPLEMENT (Reported) Fluticasone Propionate (Flovent Hfa) 110 MCG/ACTUATION AER.W.ADAP 2 PUF INH BID pna . 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 She presents to the ER with complaints of worsening dyspnea on exertion for the past 3 days along with nonproductive cough. Patient was recently discharged from [facility] after being treated for pneumonia September 28 through 10/01/2017 with IV ceftriaxone and IV doxycycline. During that admission, she had testing including a quantiferon test that was negative and elevated ESR and CRP with slightly elevated Ig E. . After discharge patient stated that she was still having a non-productuve cough and shortness of breath on exertion. She also has fatigue and night sweats this past week but denied fevers or chills. Her shortness of breath worsened the previous 3 days and patient decided to come in to the ER. Early this morning patient developed 5 episodes of small loose bowel movements. She also noted some nausea but denied vomitting or abdominal pain. Vital signs at the ER revealed normal O2 sat of 98% on room air and blood pressure of 166/95 mmhg. Physical exam shows an elderly woman, not in distress. Chest exam shows normal air entry with no wheeze or crackles. Cardiac exam shows RRR and a normal S1 and S2 with no murmurs. Abdomen is non tender with normal bowel sounds. Extremities show no pedal edema. Labs at admission show a CBC with normal WBC, hemoglobin and elevated platelet count of 583. BEP shows normal Na, K, with BUN of 22 and slightly elevated calcium of 10.4. Rapid flu test was negative. Chest x-ray shows persistence of left upper lobe opacity. EKG show normal sinus rhythm Assessment Ms Workman presents with worsening shortness of breath of 3 days duration and persistent of nonproductive cough after treatment for pneumonia 2 weeks ago. She has had multiple episodes of pneumonia in the past with evaluations being inconclusive but concerning for right middle lobe syndrome among other possibilities. At this time she has no fever, and both her chest exam and chest x-ray findings do not suggest any new pathology (CHest x ray does show persistence of left upper lobe infiltrate, which is consistent with her recent pneumonia a few weeks ago). Her symptoms could be from a viral bronghitis or post infectious cough. Her diarrhea started today and given her recent antibiotic use, C-difficile infection must be ruled out. Plan 1. Dyspnea on exertion and probable post infectious cough (Patient is status post treatment for pneumonia) 2. Acute diarrhea Plan * Admit to general medicine * Follow off antibiotics * Send sputum cultures (if possible), Follow up blood cultures * TRC evaluation for nebulizer therpy * Pulmonology consultation * Send stool culture and stool c-difficile testing * DVT prophylaxis with SC lovenox * Patient is full code
[2017-10-16 15:37] VITALS: BP 152/92
--- NOTE | 2017-10-16 15:54 | PN- Student ---
Subjective Subjective: Amelia Sullivan is a 72 y/o female with a past medical history of recurrent episodes of pneumonia, [place] Syndrome?, right middle lobe syndrome?, osteoarthritis (which has been worse in the last three months) and occular melanoma status post beam radiation (patient has left eye blindness). She was admitted in the hospital on September 28 until October 01 for community acquired pneumonia and was treated with antibiotics. After her discharge, although better , she states that she wasn't able to go back to her usual baseline. She continued to feel short of breath (it has worsened in the past three days) which started limiting her active lifestyle, and she kept on having a dry cough. Yesterday night when she laid down to sleep, she felt an uncomfortable pressure in the right side of her chest that radiated to the base of her shoulder blades. She also felt her stomach "queasy", she described it as if her stomach was twisting before she started feeling nauseous. She woke up to go the bathroom and she felt out of breath. She had 5 bowel movements during the night, and every time she stood up to walk to the bathroom, she would feel out of breath. She complains about chronic lower back pain, night sweats and changes in her appetite. She denies any sputum production, chest pain, headaches, weight loss, fevers or chills. Her web marketing specialist (Dr. Coreas) prescribed a 5 day course of Prednisone for the treatment of osteoarthritis, but she stopped taking them on Thursday as it wasn't relieving her symptoms. Allergies: Penicillins (rash), Sulfas (rash) and Azythromycin (GI pain) Home medications: Albuterol (1 to 2 times a day as needed) Surgical history: Hysterectomy (1979), eye surgery (2006) Family history: Mother is still alive and suffers from afib. Father because of skin melanoma that metastasize to the brain. Social: Patient is a social drinker, doesn't smoke (nor anyone in the family), and denies illicit drug use. She lives with her . Objective Objective: Vital Signs Date Time Temp Pulse Resp B/P B/P Pulse O2 O2 Flow FiO2 Mean Ox Delivery Rate 10/16 1537 98.7 70 16 152/92 96 Room Air 10/16 1439 98.0 71 20 136/76 97 Room Air 10/16 1339 144/80 10/16 1330 98.3 76 18 97 Room Air 10/16 1007 96.0 80 16 166/95 98 Room Air Last 24 Hours I&Os 10/16 1600 10/16 0800 10/16 0000 Intake Total 0 Output Total Balance 0 Intake, Oral 0 Patient 144 lb Weight Weight Reported by Patient Measurement Method Physical Exam General Appearance: Patient seems alert, cooperative in no distress and oriented x3. Skin: Normal HEENT: Normal Cardiovascular: Regular rate, normal S1 & S2, no murmurs were heard Lungs: No abnormal sounds were heard Abdomen: No tenderness or masses Neurological: Normal Current Medications Sig/Dwain Start time Last Medication Dose Stop Time Status Admin Acetaminophen 650 MG Q6P PRN 10/16 151 AC (Tylenol) Enoxaparin Sodium 40 MG DAILY 10/16 151 AC (Lovenox) Ibuprofen 600 MG Q6P PRN 10/16 151 AC (Motrin) Multivitamins 1 TAB DAILY 10/16 151 AC (Theragran Vitamins) Radiology Chest X-Ray was performed and showed slightly hyperexpanded lungs and two areas of opacity, one of them located in the left upper lobe (consistent with an opacity seen on a comparison CT scan) and another one in the lateral left upper lung (new opacity). Results Results: Laboratory Tests 10/16/17 1139: Anion Gap 13, Estimated GFR > 60, BUN/Creatinine Ratio 36.7 H, Glucose 91, Calcium 10.4 H, Total Bilirubin 0.7, AST 26, ALT 38, Alkaline Phosphatase 151 H, Troponin I < 0.01, Total Protein 8.1, Albumin 4.7, Globulin 3.4, Albumin/ Globulin Ratio 1.4, CBC w Diff NO MAN DIFF REQ, RBC 4.63, MCV 90.9, MCH 30.4, MCHC 33.4, RDW 14.5, MPV 7.7, Gran % 68.2, Lymphocytes % 23.5, Monocytes % 6.2, Eosinophils % 1.2, Basophils % 0.9, Absolute Granulocytes 5.7, Absolute Lymphocytes 2.0, Absolute Monocytes 0.5, Absolute Eosinophils 0.1, Absolute Basophils 0.1 Microbiology 10/16 1523 STOOL: Clostridium difficile Toxin A & B - COLB 10/16 152 STOOL: Stool Culture - COLB 10/16 1436 NASOPHARYN: Influenza Virus A & B Rapid Smear - COMP 10/16 1155 BLOOD: Blood Culture - RECD 10/16 1139 BLOOD: Blood Culture - RECD Assessment/Plan Assessment: Amelia Sullivan is a 72 y/o female with a past medical history of recurrent episodes of pneumonia, [place] Syndrome?, right middle lobe syndrome?, osteoarthritis (which has been worse in the last three months) and occular melanoma status post beam radiation (patient has left eye blindness). She was admitted in the hospital on September 28 until October 01 for community acquired pneumonia and was treated with antibiotics. After her discharge, although better , she states that she wasn't able to go back to her usual baseline. She continued to feel short of breath (it has worsened in the past three days) which started limiting her active lifestyle, and she kept on having a dry cough. Yesterday night when she laid down to sleep, she felt an uncomfortable pressure in the right side of her chest that radiated to the base of her shoulder blades. She also felt her stomach "queasy", she described it as if her stomach was twisting before she started feeling nauseous. She woke up to go the bathroom and she felt out of breath. She had 5 bowel movements during the night, and every time she stood up to walk to the bathroom, she would feel out of breath. She complains about chronic lower back pain, night sweats and changes in her appetite. She denies any sputum production, chest pain, headaches, weight loss, fevers or chills. Problem list: 1. Dyspnea on exertion 2. Osteoarthritis 3. Back pain Plan: 1. Consult with sample preparation supervisor the radiographic findings. Consider ordering a CT scan to visualize better the opacities seen in the radiograph. 2. & 3. Administer NSAIDS to minimize the pain. Consult with web marketing specialist for more options.
--- NOTE | 2017-10-16 19:18 | Cons- Pulmonary ---
See Addendum General Information and HPI Consulting Request Date of Consult: 10/16/17 Requested By: med team History of Present Illness: [facility] for pneumonia came today for non productive cough, worsening dyspnea for past three days. Patient recently got discharged from [facility] in 09/30/2017 treated for community-acquired pneumonia with ceftriaxone and doxycycline [patient is allergic to azithromycin]. Patient says she didn't get better continued having nonproductive cough. The cough is not associated with any sputum production, fever, chills, runny nose. She endorses night sweats last week. Last night patient felt nauseous and had increased shortness of breath. Patient tried using her nebulizer twice yesterday with no relief. She also felt right chest discomfort going to the right shoulder blade. Patient had severe abdominal pain associated with 5 normal bowel movements this morning, Not associated with any blood. Patient also has history of chronic back pain on and off. Patient denies chest pain, headache, myalgia, fever, fall, weakness, numbness, tingling sensation. Patient is seeing Dr. Coreas for osteoarthritis who started her on tapering dose of prednisone. Patient stopped taking prednisone as it didn't relieve her symptoms. Patient denies loss of weight/ loss of appetite. Dr. Contreras is her depot manager with whom she has an appointment is 10/21/2017. Constitutional: Reports: weakness. Cardiovascular: Reports: no symptoms. Respiratory: Reports: cough, short of breath. GI: Reports: no symptoms. Genitourinary: Reports: no symptoms. Musculoskeletal: Reports: joint pain. Allergies/Medications Allergies: Coded Allergies: Penicillins (RASH 10/21/16) Sulfa (Sulfonamide Antibiotics) (RASH 10/21/16) azithromycin (SEVERE GI PAIN, DIARRHEA 10/21/16) Home Med List: Albuterol Sulfate 2.5 MG/3 ML (0.083 %) VIAL.NEB 1 Vial INH/NURYS QAM RIGHT MIDDLE LOBE SYNDROME (Reported) Ascorbate Calcium (Vitamin C) (Unknown Strength) TABLET (Unknown Dose) PO DAILY SUPPLEMENT (Reported) Multivitamin (Daily Value) 1 EACH TABLET 1 TAB PO DAILY VITAMIN SUPPORT ( Reported) Review of Systems Review of Systems Constitutional: Reports: see HPI. 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 MOTHER (afib). Relation not specified for: *No pertinent family history Psychosocial History Where Do You Live? Home Who Do You Live With? spouse Services at Home: None Primary Language: Lao Smoking Status: Never Smoked ETOH Use: occasional use Functional Ability ADLs Independent: dressing, eating, toileting, bathing. Ambulation: independent IADLs Independent: shopping, housework, finances, food prep, telephone, transportation , medication admin. Exam & Diagnostic Data Last 24 Hrs of Vital Signs/I&O Vital Signs Date Time Temp Pulse Resp B/P B/P Pulse O2 O2 Flow FiO2 Mean Ox Delivery Rate 10/16 1537 98.7 70 16 152/92 96 Room Air 10/16 1439 98.0 71 20 136/76 97 Room Air 10/16 1339 144/80 10/16 1330 98.3 76 18 97 Room Air 10/16 1007 96.0 80 16 166/95 98 Room Air Intake & Output 10/16 1600 10/16 0800 10/16 0000 Intake Total 0 Output Total Balance 0 Intake, Oral 0 Patient 144 lb Weight Weight Reported by Patient Measurement Method Last 48 Hrs of Labs/Arthur: Laboratory Tests 10/16/17 1139: Anion Gap 13, Estimated GFR > 60, BUN/Creatinine Ratio 36.7 H, Glucose 91, Calcium 10.4 H, Total Bilirubin 0.7, AST 26, ALT 38, Alkaline Phosphatase 151 H, Troponin I < 0.01, Total Protein 8.1, Albumin 4.7, Globulin 3.4, Albumin/ Globulin Ratio 1.4, CBC w Diff NO MAN DIFF REQ, RBC 4.63, MCV 90.9, MCH 30.4, MCHC 33.4, RDW 14.5, MPV 7.7, Gran % 68.2, Lymphocytes % 23.5, Monocytes % 6.2, Eosinophils % 1.2, Basophils % 0.9, Absolute Granulocytes 5.7, Absolute Lymphocytes 2.0, Absolute Monocytes 0.5, Absolute Eosinophils 0.1, Absolute Basophils 0.1 Microbiology 10/16 1436 NASOPHARYN: Influenza Virus A & B Rapid Smear - COMP Assessment/Plan Impression/Plan: CT chest done few weeks ago IMPRESSION: Dense infiltrate in the left upper lung anterior as described and some increasing reticular nodular change in the right upper lung anterior. These are most consistent with areas of infiltrate. I would recommend a follow-up study here after treatment 6 weeks to 3 months to assess for resolution as underlying malignancy cannot be excluded such as bronchoalveolar tumor There is some increasing central adenopathy which may be reactive but again short-term follow-up is recommended. DICTATED BY: Christopher Mckinney MD DATE/TIME DICTATED:09/27/172341 IMPRESSION: Persistent left upper lobe pulmonary opacity with suggestion of a new area of left upper lung opacity. Consider further chest CT scan evaluation. IMPRESSION Pt with persistant PATRICIA infiltrate with recurrent cough - with no fever rule out malignancy or inflammatory lung infiltrate. Previous quantiferron neg, and high esr and abdifatah neg Previous recurrent bronchitis and recurrent rt upper lobe infiltrate in the past Previous history of melanoma REC CT chest with IVC to eval this lesion Hold abx Sputum culture and sputum for afb and fungal culture ( no need to isolate) Quantitative Ig G Hiv antibody Would need bronch and biopsy of this lesion if not better Stool for cdiff Will follow Dr. Contreras to follow from thursday ADDENDUM Unfortunately pt has already had a ct chest without contrast done earlier No need to rpt ct chest with ivc Prob dc in am after above work up as pt may need a bronch and bx Consult Acknowledgment - Thank you for your consult request.
[2017-10-16 20:42] VITALS: BP 108/58
--- NOTE | 2017-10-16 21:50 | CT SCAN REPORT ---
EXAMINATION: CT CHEST WITHOUT CONTRAST CLINICAL INFORMATION: Right middle lobe syndrome and suspected [place] syndrome. Persistent left upper lobe opacity. COMPARISON: Radiograph from today. CT performed 09/27/2017. TECHNIQUE: Multidetector volumetric CT imaging of the chest was done. Axial MIP volume rendering provided. Sagittal and coronal reformatted images were obtained. DLP: 181 mGy-cm FINDINGS: LUNGS: The central airways are patent. Scattered tree-in-bud opacities are noted in the right middle lobe, similar to prior. Additional tiny tree-in-bud nodular opacities are seen in the inferior anterior right upper lobe, also unchanged. There is a residual small consolidation in the anterior aspect of the medial right upper lobe. This has improved when compared to the previous study from 09/27/2017. No additional left upper lobe opacity. No pneumothorax. MEDIASTINUM: The heart is normal in size. No pericardial effusion. No pathologically enlarged mediastinal lymph nodes. Multiple small nodes are present which could still be reactive. PLEURA: There is no pleural effusion. No pleural mass or thickening. AXILLA: No lymphadenopathy. UPPER ABDOMEN: Scattered hypoattenuating lesions are seen in the liver, unchanged. OSSEOUS STRUCTURES: No acute or suspicious osseous abnormality. Mild degenerative changes throughout the spine. IMPRESSION: 1. Partial improvement of the anterior left upper lobe consolidation with small residual opacity remaining, suggestive of improving pneumonia. 2. No significant change in appearance of tree in bud opacities of the anterior right upper lobe and right middle lobe, likely chronic inflammatory in nature.
--- NOTE | 2017-10-17 04:07 | PN- Housestaff ---
Sol Rodríguez MD 10/17/17 0407: Subjective Follow-up For: Left upper lobe opacity Complaints: no complaints Subjective: Patient seen and examined at bedside no overnight events. No complaints. She denies cough, shortness of breath, nausea, vomiting, fever, chest pain. Review of Systems Constitutional: Reports: no symptoms. Cardiovascular: Reports: no symptoms. Respiratory: Reports: no symptoms. Gastrointestinal: Reports: no symptoms. Genitourinary: Reports: no symptoms. Objective Last 24 Hrs of Vital Signs/I&O Vital Signs Date Time Temp Pulse Resp B/P B/P Pulse O2 O2 Flow FiO2 Mean Ox Delivery Rate 10/16 2042 98.1 70 17 108/58 95 Room Air 10/16 1855 Room Air 10/16 1537 98.7 70 16 152/92 96 Room Air 10/16 1439 98.0 71 20 136/76 97 Room Air 10/16 1339 144/80 10/16 1330 98.3 76 18 97 Room Air 10/16 1007 96.0 80 16 166/95 98 Room Air Intake & Output 10/17 0800 10/17 0000 10/16 1600 Intake Total 480 0 Output Total Balance 480 0 Intake, Oral 480 0 Patient 144 lb Weight Weight Reported by Patient Measurement Method Physical Exam General Appearance: Alert, Oriented X3, Cooperative, No Acute Distress Cardiovascular: Regular Rate, Normal S1, Normal S2, No Murmurs Lungs: Clear to Auscultation Abdomen: Normal Bowel Sounds, Soft, No Tenderness, No Hepatospenomegaly Neurological: Normal Gait, Normal Speech, Strength at 5/5 X4 Ext, Normal Tone Extremities: No Cyanosis, No Edema, Normal Pulses Current Medications: Current Medications Sig/Dwain Start time Last Medication Dose Route Stop Time Status Admin Acetaminophen 650 MG Q6P PRN 10/16 1515 AC PO Albuterol Sulfate 3 ML Q4 HRS NEEDED PRN 10/16 2030 AC INH Doxycycline Hyclate 100 MG ONCE ONE 10/16 1300 DC 10/16 Sodium Chloride 100 ML IV 10/16 1405 1325 Enoxaparin Sodium 40 MG DAILY 10/16 151 AC SC Ibuprofen 600 MG Q6P PRN 10/16 1515 AC PO Multivitamins 1 TAB DAILY 10/16 1513 AC PO Ondansetron HCl 0 .STK-MED ONE 10/16 1311 DC .ROUTE Ondansetron HCl 4 MG ONCE ONE 10/16 1300 DC 10/16 IV 10/16 1301 1314 Last 24 Hrs of Lab/Arthur Results Last 24 Hrs of Labs/Mics: Laboratory Tests 10/16/17 1139: Anion Gap 13, Estimated GFR > 60, BUN/Creatinine Ratio 36.7 H, Glucose 91, Calcium 10.4 H, Total Bilirubin 0.7, AST 26, ALT 38, Alkaline Phosphatase 151 H, Troponin I < 0.01, Total Protein 8.1, Albumin 4.7, Globulin 3.4, Albumin/ Globulin Ratio 1.4, CBC w Diff NO MAN DIFF REQ, RBC 4.63, MCV 90.9, MCH 30.4, MCHC 33.4, RDW 14.5, MPV 7.7, Gran % 68.2, Lymphocytes % 23.5, Monocytes % 6.2, Eosinophils % 1.2, Basophils % 0.9, Absolute Granulocytes 5.7, Absolute Lymphocytes 2.0, Absolute Monocytes 0.5, Absolute Eosinophils 0.1, Absolute Basophils 0.1, HIV 1&2 Ab Western Blot NONREACTIVE Microbiology 10/16 2222 LOWER RESP: AFB Culture with PCR Identification - COLB 10/16 2222 LOWER RESP: AFB Smear Concentration - COLB 10/16 2222 LOWER RESP: Routine Culture - COLB 10/16 222 LOWER RESP: Respiratory Culture - COLB 10/17 2219 LOWER RESP: Gram Stain - COLB 10/16 2202 STOOL: Clostridium difficile Toxin A & B - COLB 10/16 1523 STOOL: Clostridium difficile Toxin A & B - COLB 10/16 1523 STOOL: Stool Culture - COLB 10/16 1436 NASOPHARYN: Influenza Virus A & B Rapid Smear - COMP 10/16 1155 BLOOD: Blood Culture - RECD 10/16 1139 BLOOD: Blood Culture - RECD Assessment/Plan Assessment: 72 YO F with PMH of multiple episodes of pneumonia, 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 Chest x-ray Persistent left upper lobe pulmonary opacity with suggestion of a new area of left upper lung opacity. Consider further chest CT scan evaluation. Assessment and plan 1. Persistent left upper lobe opacity. 2. Multiple episodes of pneumonia treated in the past. [tuberculosis was ruled out, immunodeficiency workup negative] * Persistent left upper lobe opacity-patient's left upper lobe opacity in x-ray can be a slow resolution of previous community-acquired pneumonia or persistent opacity inadequately treated. Patient had a repeat CAT scan yesterday which showed partial improvement of left upper lobe consolidation suggestive of improving pneumonia. Patient had CAT scan last admission in September, radiologist suggested to do a repeat scan in 8 weeks to assess for any underlying malignancy though the patient doesn't have any symptoms of loss of weight, appetite, weakness. Patient is a nonsmoker. Pulmonology on board suggested stable for discharge. No further tests needed/bronchoscopy. There was a suspicion of Lady [place] syndrome by the patient but the patient has opacity in the right upper lobe and the condition is more commonly seen right middle lobe. We will follow-up antibiotics. * c diff follow, HIV, sputum culture, AFB, fungal culture * TRC nebulization * code-full code * Diet-regular diet * DVT prophylaxis-Lovenox Problem List: 1. Dyspnea Pain Ratin Pain Location: none Pain Goal: Remain pain free Pain Plan: tylenol Tomorrow's Labs & Rationales: cbc,bep Fredy Marie 10/17/17 1729: Attending MD Review Statement Attending Statement Attending MD Statement: examined this patient, discuss w/resident/PA/OILER AND GREASER, agreed w/resident/PA/OILER AND GREASER, reviewed EMR data (avail), discussed with nursing Attending Assessment/Plan: pt being dced home in stable condition. d/w food writer the care plan. D/w pt the discharge plan and change in meds.
--- NOTE | 2017-10-17 04:32 | Patient Discharge Instructions ---
Discharge Instructions General Discharge Information You were seen/treated for: Shortness of breath with resolving left upper lobe opacity Watch for these problems: In case of fever, cough, shortness of breath, chest pain please go to the nearest emergency room Special Instructions: Please follow-up with your primary care provider and security assurance specialist within 1-2 weeks of discharge Diet Continue normal diet: Yes Activity Full Activity/No Limits: No Activity Self Limited: Yes Acute Coronary Syndrome Inclusion Criteria At DC or during hospital stay patient has or had the following: ACS DIAGNOSIS No Discharge Core Measures Meds if any: Prescribed or Continued at Discharge Meds if any: NOT Prescribed or Continued at Discharge Congestive Heart Failure Inclusion Criteria At DC or during hospital stay patient has or had the following: CHF DIAGNOSIS No Discharge Core Measures Meds if any: Prescribed or Continued at Discharge Meds if any: NOT Prescribed or Continued at Discharge Cerebrovascular accident Inclusion Criteria At DC or during hospital stay patient has or had the following: CVA/TIA Diagnosis No Discharge Core Measures Meds if any: Prescribed or Continued at Discharge Meds if any: NOT Prescribed or Continued at Discharge Venous thromboembolism Inclusion Criteria VTE Diagnosis No VTE Type NONE VTE Confirmed by (Test) NONE Discharge Core Measures - Per Current guidelines, there needs to be overlap - treatment for the first 5 days of Warfarin therapy. - If discharged on Warfarin prior to 5 days of - overlap therapy, the patient will need to be - assessed for post discharge needs including - *Post discharge parental anticoagulation - *Warfarin and/or parental anticoagulation education - *Follow up date to check INR post discharge At least 5 days overlap therapy as Inpatient No Meds if any: Prescribed or Continued at Discharge Note: Overlap Therapy is Warfarin and Anticoagulant Meds if any: NOT Prescribed or Continued at Discharge
[2017-10-17] MEDS ORDERED: FLOVENT HFA12 G1 INH ×2 (05:04→05:30)
[2017-10-17 06:06] VITALS: BP 124/72
--- NOTE | 2017-10-17 06:45 | Discharge Summary ---
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 Patient recently got discharged from in 09/30/2017 treated for community-acquired pneumonia with ceftriaxone and doxycycline [ patient is allergic to azithromycin]. Patient says she didn't get better continued having nonproductive cough. The cough is not associated with any sputum production, fever, chills, runny nose. She endorses night sweats last week. Last night patient felt nauseous and had increased shortness of breath. Patient tried using her nebulizer twice yesterday with no relief. She also felt right chest discomfort going to the right shoulder blade. Patient had severe abdominal pain associated with 5 normal bowel movements this morning, Not associated with any blood. Patient also has history of chronic back pain on and off. Patient denies chest pain, headache, myalgia, fever, fall, weakness, numbness, tingling sensation. Patient is seeing Dr. Coreas for osteoarthritis who started her on tapering dose of prednisone. Patient stopped taking prednisone as it didn't relieve her symptoms. Patient denies loss of weight/ loss of appetite. Dr. Contreras is her operating room tech with whom she has an appointment is 10/21/2017. Hospital course Patient was admitted for cough and shortness of breath. Upon admission her chest x-ray showed persistent left upper lobe opacity. Patient was recently treated for pneumonia and got discharged on 10/01/2017. This cough and shortness of breath can be secondary due to post inflammatory cough. Patient condition improved markedly with TRC nebulization. CT chest was done which showed improving left upper lobe opacity. Patient advised to follow-up with Dr. Contreras her primary care physician as outpatient. Patient might benefit from Flovent 2 puffs twice a day, POSTURAL DRAINAGE AND ACEPELLA. If the patient continues having left upper lobe opacity may benefit from bronchoscopy as outpatient. Allergies: Coded Allergies: Penicillins (RASH 10/21/16) Sulfa (Sulfonamide Antibiotics) (RASH 10/21/16) azithromycin (SEVERE GI PAIN, DIARRHEA 10/21/16) Pertinent Lab Results: Chest x-ray 10/16/2017 Persistent left upper lobe pulmonary opacity with suggestion of a new area of left upper lung opacity. Consider further chest CT scan evaluation. CT chest 2012 Impression: Persistent peripheral right middle lobe infiltrate. Interval resolution of the right upper lobe infiltrate. Consider radiographic followup. Left upper lobe and lingular nodules are stable. Given the size of the 8mm nodule in the lingula Depending on patient risk factors, an additional follow up CT scan recommended in 6 to 12 months New 2 to 3 mm nodule is seen in the right upper lobe along the major fissure. Right middle lobe granuloma CT chest 2015March 13. The patchy opacities in the right lung are suspicious for a multifocal infectious process. Continued radiographic follow-up is suggested in 4-6 weeks' time. 2. Stable left lingular pulmonary nodule dating to 2012, highly reassuring. 3. Numerous subcentimeter probable liver cysts. CT chest June 2016 No significant change in qdhk-jg-iqa-type nodular opacities in the anteromedial aspect of the right upper lobe.Multiple scattered calcified granulomas and scattered tiny noncalcified nodules, unchanged, consistent with granulomatous lung disease. CT chest June 2017 1. Chronic cluster of ovnh-vu-kdu-in-bud nodules within the anterior segment of the right upper lobe, consistent with infectious bronchiolitis. Within this region, there are some new and/or larger pulmonary and pleural-based nodules. The possibility of infection with mycobacterium avium complex should be considered. CT chest September 2017 Dense infiltrate in the left upper lung anterior as described and some increasing reticular nodular change in the right upper lung anterior. These are most consistent with areas of infiltrate. I would recommend a follow-up study here after treatment 6 weeks to 3 months to assess for resolution as underlying malignancy cannot be excluded such as bronchoalveolar tumor Disposition Summary Disposition Principal Diagnosis: Resolving left upper lobe pneumonia Additional Diagnosis: None Discharge Disposition: home or self care Discharge Instructions General Discharge Information Code Status: Full Code Patient's Diet: Regular diet Patient's Activity: As tolerated Follow-Up Instructions/Appts: Please follow-up with your primary care provider and operating room tech within 1-2 weeks of discharge Medications at Discharge Discharge Medications: Continue taking these medications: Ascorbate Calcium (Vitamin C) (Unknown Strength) TABLET Unknown Dose ORAL DAILY Comments: NOT GIVEN IN THE HOSPITAL Multivitamin (Daily Value) 1 EACH TABLET 1 Tablet ORAL DAILY Comments: NOT GIVEN IN THE HOSPITAL Albuterol Sulfate (Albuterol Sulfate) 2.5 MG/3 ML (0.083 %) VIAL.NEB 1 Vial Inhale Solution Every Morning Comments: Last Taken: 09/30/17 Time: 1115 AM Start taking the following new medications: Fluticasone Propionate (Flovent Hfa) 110 MCG/ACTUATION AER.W.ADAP 2 Puff Inhale through mouth TWICE DAILY Qty = 1 No Refills Instructions: . Comments: NOT GIVEN IN HOSPITAL Copies To: Viktor TURCIOS,Myke Contreras MD,Jimbo
--- NOTE | 2017-10-17 13:08 | PN- Pulmonary ---
Subjective HPI/Critical Care Issues: Stable No cough no fever Objective Current Medications: Current Medications Sig/Dwain Start time Last Medication Dose Route Stop Time Status Admin Acetaminophen 650 MG Q6P PRN 10/16 151 AC 10/17 PO 0855 Albuterol Sulfate 3 ML Q4 HRS NEEDED PRN 10/16 2030 AC INH Doxycycline Hyclate 100 MG ONCE ONE 10/16 1300 DC 10/16 Sodium Chloride 100 ML IV 10/16 1405 1325 Enoxaparin Sodium 40 MG DAILY 10/16 1515 AC SC Ibuprofen 600 MG Q6P PRN 10/16 1515 AC PO Multivitamins 1 TAB DAILY 10/16 1513 AC PO Ondansetron HCl 0 .STK-MED ONE 10/16 1311 DC .ROUTE Vital Signs & I&O Last 24 Hrs of Vitals and I&O: Vital Signs Date Time Temp Pulse Resp B/P B/P Pulse O2 O2 Flow FiO2 Mean Ox Delivery Rate 10/17 0800 97 Room Air 10/17 0606 98.1 62 20 124/72 95 10/16 2042 98.1 70 17 108/58 95 Room Air 10/16 1855 Room Air 10/16 1537 98.7 70 16 152/92 96 Room Air 10/16 1439 98.0 71 20 136/76 97 Room Air 10/16 1339 144/80 10/16 1330 98.3 76 18 97 Room Air Intake & Output 10/17 1600 10/17 0800 04 0000 Intake Total 120 480 Output Total Balance 120 480 Intake, Oral 120 480 Patient 132 lb Weight Weight Bed scale Measurement Method Impression/Plan Impression/Plan Impression/Plan: CT chest IMPRESSION: 1. Partial improvement of the anterior left upper lobe consolidation with small residual opacity remaining, suggestive of improving pneumonia. 2. No significant change in appearance of tree in bud opacities of the anterior right upper lobe and right middle lobe, likely chronic inflammatory in nature. DICTATED BY: Bobby TURCIOS,Nathan DATE/TIME DICTATED:10/16/172141 JACKIE EOMI Neck supple no jvd or adenopathy Chest clear S1s2 no murmur Abd soft No edema aao x 3 normal neuro exam IMPRESSION Pt with Improving PATRICIA infiltrate with mild cough - consistant with resolving pna and post inflammatory cough Previous on and off atx and chronic infiltre in upper lobe and RML CT shows improvement Mild diarrhea improved Previous history of melanoma REC Flovent for two weeks for cough Postural drainage daily - pt educated by me regarding this Acepella Only prn nebs if needed Stable for dc
== END 2017-10-17 14:36 | DRG 195 ==
LOC: ERH 10:04 → ERHI 13:17 → 2NB 13:17 → ENRESERV 13:37 → ENTRNSPT 14:56 → EDTRNSPTSTS 15:04 → EDTRNSPT 15:06 → 2NB 15:18 → CMPTRNSPT 15:26 → 2NB 10-17 14:36
PROVIDERS: Physician Assistant
DX: J18.9 Pneumonia, unspecified organism (principal); G89.29 Other chronic pain; Z88.0 Allergy status to penicillin; Z88.2 Allergy status to sulfonamides; Z88.1 Allergy status to other antibiotic agents; Z90.710 Acquired absence of both cervix and uterus; R91.1 Solitary pulmonary nodule; M51.36 Other intervertebral disc degeneration, lumbar region; R19.7 Diarrhea, unspecified; M54.5 Low back pain; M19.90 Unspecified osteoarthritis, unspecified site; Z85.840 Personal history of malignant neoplasm of eye
CPT/HCPCS: 2NBSP; 36415; 71046; 87040; 87045; 87070; 87389; 87804; 87804-59; 93005; 93010; J1650; J2405